=== PATIENT | female | born 1955 | race Caucasian/White ===

== ENCOUNTER 2019-07-26 11:23 | Inpatient (IN) ==
--- NOTE | 2019-07-26 12:43 | Diag Imaging Result Doc PS360 ---
EXAM: CHEST-1 VIEW HISTORY: not eating TECHNIQUE: Single view COMPARISON: None. FINDINGS: The lungs are hyperexpanded. The heart is not enlarged. The vessels are small. Minimal increased markings in the left base behind the heart. No effusion identified. IMPRESSION: Emphysema. Likely left basilar atelectasis Electronically signed by Leonard Gresham 07/26/2019 12:40 PM
[2019-07-26 12:47] LABS: URINE SOURCE CLEAN CATCH
[2019-07-26 12:51] LABS: BILIRUBIN URINE NEGATIVE (NEGATIVE); BLOOD URINE TRACE (NEGATIVE); COLOR ORANGE; GLUCOSE URINE NEGATIVE (NEGATIVE); KETONE URINE NEGATIVE (NEGATIVE); LEUKOCYTES URINE SMALL (NEGATIVE); NITRITE URINE NEGATIVE (NEGATIVE); PH URINE 8.5; PROTEIN URINE TRACE mg/dL (NEGATIVE); SP GRAVITY URINE 1.007; TURBIDITY URINE HAZY (CLEAR); UR EPITHELIAL CELLS <10 /HPF (<10); URINE BACTERIA 4+ /HPF; URINE RBC <10 /HPF (<10); URINE WBC <10 /HPF (<10); UROBILINOGEN URINE 4 mg/dL (NORMAL)
[2019-07-26 12:52] LABS: BASO# 0.02 X1000 (0.0-0.2); BASO% 0.5 % (0.0-0.8); EOS% 2.5 % (0.0-10.0); HEMATOCRIT 26.1 % (37.0-47.0); HEMOGLOBIN 9.2 g/dL (12.0-16.0); LYMPH# 0.88 X1000 (1.2-3.4); LYMPH% 22.4 % (20.5-51.1); MCH 32.2 PG (27-31); MCHC 35.2 g/dL (33-37); MCV 91.3 FL (81-99); MONO# 0.57 X1000 (0.11-0.59); MONO% 14.5 % (1.7-9.3); MPV 9.7 FL (7.4-10.4); NEUT# 2.36 X1000 (1.4-6.5); NEUT% 60.1 % (42.2-75.2); PLT 296 X1000 (130-400); RBC 2.86 XMIL (4.2-5.4); RDW 14.5 % (11.5-14.5); WBC 3.93 X1000 (4.8-10.8)
[2019-07-26 13:28] LABS: UR AMPHETAMINES QUAL NONE DETECTED (NONE DETECT); UR BARBITUATES QUAL NONE DETECTED (NONE DETECT); UR BENZODIAZEPIN QUAL NONE DETECTED (NONE DETECT); UR CANNABINOIDS QUAL NONE DETECTED (NONE DETECT); UR COCAINE QUAL NONE DETECTED (NONE DETECT); UR METHADONE QUAL NONE DETECTED (NONE DETECT); UR OPIATES QUAL NONE DETECTED (NONE DETECT); UR OXYCODONE QUAL NONE DETECTED (NONE DETECT); UR PCP QUAL NONE DETECTED (NONE DETECT)
[2019-07-26 13:56] LABS: AGAP 15; ALB/GLOB RATIO 0.9; ALBUMIN 2.4 g/dL (3.5-5.0); ALKALINE PHOSPHATASE 162 U/L (32-104); BUN 3 mg/dL (8-22); CHLORIDE 61 mmol/L (98-107); COSMO 224; CREATININE 0.4 mg/dL (0.5-0.9); ESTIMATED GFR > 60; GLUCOSE 98 mg/dL (70-104); GOT 71 U/L (10-30); GPT 19 U/L (10-36); TCO2 36 mmol/L (25-35); TOTAL BILIRUBIN 1.97 mg/dL (0.20-1.00); TOTAL PROTEIN 5.1 g/dL (6.3-8.3)
[2019-07-26 13:57] LABS: POTASSIUM 2.3 mmol/L (3.5-5.1); SODIUM 112 mmol/L (136-145)
[2019-07-26 13:58] LABS: CALCIUM 6.1 mg/dL (8.8-10.2)
[2019-07-26] MEDS ORDERED: CALCIUM CHLORIDE SYRINGE IV ONE (14:35)
[2019-07-26] MEDS ORDERED: POTASSIUM CHLORIDE 20% LIQUID PO ONE ×2 (14:35→23:00)
[2019-07-26] MEDS ORDERED: POTASSIUM CHLORIDE 40 MEQ/SWI 40 MEQ/100 ML IVPB IV ONE (14:35)
[2019-07-26] MEDS ORDERED: NS 500 ML IV ONE (15:25)
--- NOTE | 2019-07-26 15:31 | PROVIDER DOCUMENTATION ---
This chart was entered by Amilcar Wills Scribe, acting as scribe for Dominic Cook MD. HPI-General Adult - General Chief Complaint: General Adult Stated Complaint: decreased appetite Time Seen by Provider: 07/26/19 11:57 Source: patient, family Allergies/Adverse Reactions: Patient Allergies Allergy/AdvReac Type Severity Reaction Status Date / Time No Known Allergies Allergy Verified 07/26/19 11:57 Home Medications: Home Medication List Medication Instructions Recorded Confirmed Last Taken Type NK [No Home Medications] 07/26/19 07/26/19 Unknown History - History of Present Illness -Gen Adult Nature of Presenting Problems: 63 yof presents to the ed w/ c/o decrease in appetite. family states over past couple weeks " pt could walk w/ assistance to bathroom but now barley gets out of bed." pt states couple months ago could walk w/ no assistance. family states " family states pts weak, decreased daily activates. pt refused to eat/drink or seeks treatment." pt states " cant eat makes me sick." family states " pt will take 2/3 bites then vomit back up." pt states no pcp. Location of Pain/Injury: reports: none Pain Radiation: reports: no radiation Quality of Pain: reports: none Severity: reports: mild Onset/Duration: reports: 1 week ago (family states decrease over last couple weeks) Timing: reports: still present Context/Activities at Onset: reports: none Modifying Factors: improves with: nothing Associated Symptoms: reports: loss of appetite, nausea, vomiting, weakness. denies: back/neck pain, chest pain, diarrhea, fever/chills, shortness of breath Similar Symptoms Previously?: No Recently seen or treated by another doctor?: No Review of Systems - Adult - REVIEW OF SYSTEMS - ADULT Constitutional: denies: chills, fever Eyes: reports: no symptoms reported Ears, Nose, Mouth & Throat: denies: ear pain, sinus problem Cardiovascular: denies: chest pain, palpitations Respiratory: reports: no symptoms reported Gastrointestinal: reports: see HPI, nausea, poor appetite, vomiting. denies: abdominal pain, diarrhea Genitourinary: reports: no symptoms reported Musculoskeletal: reports: no symptoms reported Integumentary: reports: no symptoms reported Neurological: reports: no symptoms reported Psychiatric: reports: no symptoms reported Endocrine: reports: no symptoms reported Hematologic/Lymphatic: reports: no symptoms reported Allergic/Immunologic: reports: no symptoms reported All Other Systems: Reviewed and Negative Past History - Adult - PAST MEDICAL HISTORY-ADULT Review of Records: reports: Old Records Reviewed, Nursing Assessment Review, Medications Reviewed, Social history reviewed & non-contributory. Major Childhood Illnesses: reports: denies history Cardiovascular: reports: denies history Respiratory: reports: denies history Gastrointestinal: reports: denies history Obstetrical/Gynecological: reports: denies history Genitourinary: reports: denies history Musculoskeletal: reports: denies history Neurological: reports: denies history Psychiatric: reports: denies history Endocrine/Immune: reports: denies history Other Conditions: reports: denies history - PRIOR SURGERIES/PROCEDURES Surgical/Procedure History: reports: reviewed, not pertinent - IMMUNIZATION STATUS Childhood Immunizations: See Nurse Assessment Flu Vaccine: See Nurse Assessment - FAMILY HISTORY Family History: reviewed, not pertinent - SOCIAL HISTORY Smoking: quit less than 1 year, cigarettes Substance Use: denies Physical Exam-General - PHYSICAL EXAM-ADULT Initial Vital Signs Reviewed: Yes - CONSTITUTIONAL General Appearance: appears well, alert, no apparent distress - EYES Eyes: pink conjunctivae - RESPIRATORY Respiratory: chest non-tender, lungs clear, normal breath sounds - CARDIOVASCULAR Cardiovascular: normal peripheral pulses, regular rate, rhythm - CHEST (BREASTS) Chest/Breast: deferred - GASTROINTESTINAL (ABDOMEN) Abdominal Exam: normal bowel sounds, non tender, soft - GENITOURINARY Female Genitalia/Pelvic Exam: deferred Rectal Exam: deferred Hemoccult Exam: deferred - MUSCULOSKELETAL Extremity: normal inspection (no edema) - PSYCHIATRIC Psych/Mental Status: normal mood/affect, normal thought content, normal thought process, oriented x 3 Progress - PLAN OF CARE/RESULTS Progress/Plan/Lab Results: Vital Signs - 8 hr 07/26/19 11:52 Temperature 97.8 F Pulse Rate 91 H Respiratory Rate 16 Blood Pressure 119/83 O2 Sat by Pulse Oximetry 95 Result Diagrams: 07/26/19 12:40 07/26/19 12:40 - EKG 1 Time of EKG reading by physician:: 14:27 EKG Read and Signed by:: Dominic Cook EKG Interpretation (*Must complete 3 of following elements*): Abnormal Rate: 88 Rhythm: NSR [place]: normal QRS: normal [place] Interval: normal ST Wave: normal Comments: prolonged QT - XRAY 1 XRAY Study: Chest Impression: See EMR Report ( EXAM: CHEST-1 VIEW HISTORY: not eating TECHNIQUE: Single view COMPARISON: None. FINDINGS: The lungs are hyperexpanded. The heart is not enlarged. The vessels are small. Minimal increased markings in the left base behind the heart. No effusion identified. IMPRESSION: Emphysema. Likely left basilar atelectasis Electronically signed by Leonard Gresham 07/26/2019 12:40 PM 07/26/19 1240 Interpreting Physician: Leonard Gresham MD Dictated Date/Time: 07/26/19 1240 cc: Dominic Cook MD; None,PCP) - CONSULTS/PCP/HOSPITALIST Notification #1 *Consult/PCP/Hospitalist*: [place] Time Discussed: 15:30 Consult Disposition: Will see in ED, Admit Departure - Departure Date of Disposition Decision: 07/26/19 Time of Disposition Decision: 15:00 DIAGNOSIS: Hyponatremia, Hypokalemia, Hypocalcemia Disposition: ADMITTED INPATIENT 09 Certified Medical Emergency: Emergent Condition: Fair Referrals and Follow-Ups: None,PCP [Primary Care Provider] - - Critical Care Note This patient required my direct & personal management of CC.: No Attestation - Physician/ JACOB Attestation Patient care was provided by Advanced Practice Provider:: No The physician spent face to face time with patient:: Yes Advanced Practice Provider documentation review:: Supervising physician onsite and consulted in the evaluation and care of this patient. The physician did have a face to face encounter with the patient. This chart was documented by the indicated scribe, (Amilcar Wills Scribe) and accurately reflects the services I performed and decisions made by me, Dominic Cook MD, as attested by the provider's signature.
[2019-07-26] MEDS ORDERED: ZOFRAN IV ONE (15:33)
[2019-07-26] MEDS ORDERED: ZOFRAN ONE (15:41)
[2019-07-26] MEDS ORDERED: NS + KCL 20 MEQ 1,000 ML IV ONE ×2 (16:11→23:16)
[2019-07-26] MEDS ORDERED: ZOFRAN IV PRN (16:11)
[2019-07-26] MEDS ORDERED: MAGNESIUM SULFATE 4 GM/S.W.I. 4 GM/100 ML IVPB IV ONE (16:44)
--- NOTE | 2019-07-26 16:46 | EKG Report ---
Test Performed on : 07/26/2019 2:27:43 PM Test Reason : low potassium Blood Pressure : / mmHG Vent. Rate : 088 BPM Atrial Rate : 088 BPM P-R Int : 128 ms QRS Dur : 086 ms QT Int : 440 ms P-R-T Axes : 078 041 046 degrees QTc Int : 532 ms Normal sinus rhythm. Prolonged QT Abnormal ECG No previous ECGs available Unconfirmed Result
[2019-07-26] MEDS: PEPCID IV SCH (17:17)
--- NOTE | 2019-07-26 18:52 | HISTORY AND PHYSICAL ---
PRIMARY CARE PROVIDER: None. CHIEF COMPLAINT: Failure to thrive, nausea, vomiting. HISTORY OF PRESENT ILLNESS: Ms. Mcneil is a 63-year-old female who claims no past medical history. She is very hard of hearing. at bedside reports 2 years ago they lost a son to a home invasion. She has been depressed since that time. However, he reported a month before Thanksgiving she stated she was cancelling all holidays and felt like she was withdrawing more, on she had been a 3 pack per day smoker for many years she quit cold turkey. She would drink 2 alcoholic beverage per day. She quit cold turkey. Her appetite had also decreased, she was weak but was able to walk without any assistance, now over the last 2 weeks every time she tries to eat or drink she will get nauseated and will throw up and now she is unable to even get herself up to go to the bathroom or participate any activities of daily living. She has had absolutely refused to seek any treatment up until this point called EMS today and the patient agreed to come in. She was found to have multiple electrolyte derangements with a sodium of 112, potassium of 2.3, a chloride of 61, calcium of 6.1, dehydrated with a BUN of 3, creatinine 0.4, transaminitis T bilirubin of 1.97, AST of 71, alkaline phosphatase 162, protein calorie malnutrition with a total protein of 5.1 and albumin of 2.4. We are going to check a stat mag on blood that is in lab. She is currently initiated on normal saline, potassium and calcium, we will place her in the ICU place on some normal saline with potassium and watch her serial sodium q.4 hours and adjust her saline accordingly and continue with further management and treatment. PAST MEDICAL HISTORY: Denies. PAST SURGICAL HISTORY: Denies . 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 She has 3 sons one of which is from a home invasion 2 years ago. She was a 3 pack per day smoker until this year as well as a 2 alcoholic beverage drinker until of this year she quit both cold turkey. She is supportive at bedside, does report that she does not like to take medication or go to doctors did not want to seek treatment for any depression during these 2 years. REVIEW OF SYSTEMS: Twelve-point review of systems patient denies any headache, fever, chills, cough. She has had some nausea and vomiting with eating, diarrhea. No abdominal pain, no chest pain, no shortness of breath. No bright red or dark tarry stools. No dysuria, no frequency. Per she has had a foul smelling odor to her urine. PHYSICAL EXAM: VITAL SIGNS: Temperature was 97.8 degrees, heart rate 88, respiration 22, blood pressure 129/90, O2 is 99% on 2 L. GENERAL: Ms. Mcneil is a ill appearing 63-year-old female lying on the stretcher in no acute distress hard of hearing. HEENT: Atraumatic, normocephalic, JOY. NECK: Supple, trachea midline. CARDIOVASCULAR: S1, S2 appreciated. No murmurs, gallops, rubs noted. RESPIRATORY: Lung sounds clear bilaterally. ABDOMEN: Soft, nontender, nondistended. Positive bowel sounds 4 quads. Lower extremities trace edema. NEUROLOGIC: She is somewhat sleepy however she does wake up. She does answer questions appropriately. She is hard of hearing. DIAGNOSTIC DATA: Chest x-ray emphysema, likely left basilar atelectasis. LABORATORY DATA: White count 3, hemoglobin and hematocrit 9 and 26, platelet count is 296,000. Sodium 112, potassium 2.3, chloride 61, BUN 3, creatinine 0.4, blood glucose is 98, calcium 6.1, T bilirubin 1.97, AST 71, ALT 19, alkaline phosphatase 162, total protein 5.1, albumin 2.4. Urinalysis shows 4+ bacteria, small leukocytes, negative for nitrites, tox screen is negative. ASSESSMENT AND PLAN: 1. Failure to thrive. Patient not able to tolerate any p.o. intake without any nausea or vomiting. She has been too weak to perform activities of daily living or help herself to the bathroom. Will get physical therapy on board with the patient when the patient's electrolyte abnormalities have been replenished and the patient's dehydration has been addressed. 2. Multiple electrolyte derangements with hyponatremia, hypokalemia, hypochloridemia and hypocalcemia pending her magnesium and we are replenishing all her electrolytes, will slowly raise her sodium, will do serial potassium draws every 4 hours as to not raise her sodium too high to quick and replenish all electrolytes as needed. 3. Dehydration. Will continue with IV fluids. 4. Transaminitis. Will continue with IV hydration. Recheck her liver functions in the a.m. 5. Protein calorie malnutrition secondary to #1. Will bring dietary on board, put her on a regular diet, will provide Zofran, Ensures t.i.d., assistance with all meals. 6. Bacteruria, patient does have 4+ bacteria however she does not claim any dysuria. We will await her urine culture. 7. Depression. I will talk to Dr. Vergara to see an appropriate medication to start and after her electrolyte derangements are replenished and she has worked with physical therapy and she can gain her strength back she may need a consult for Isaac Nova or maybe a consult with Dr. Starr in-house on Saturday for assistance. 8. Tobacco use and abuse. Patient was a 3 pack per day smoker up until when she quit cold turkey was a smoker for many years. 9. Alcohol use too much drinks per day up until . 10. Further recommendation to follow physician evaluation, laboratory and diagnostic data. Dictated by ARCADIO Rdz for Gerald Vergara MD cc: Gerald Vergara MD MTDMari
--- NOTE | 2019-07-26 19:02 | HISTORY AND PHYSICAL ---
ADDENDUM: Ms. Mcneil is admitted today after the family brought her because of remarkable generalized weakness, not wanting to eat and poor appetite. Upon presentation, she was evaluated and on laboratory data was found to be severely hyponatremic, hypokalemic, low calcium as well, albumin of 2.4. She is being admitted for severe electrolyte abnormality and no eating. PHYSICAL EXAM: For most part is unremarkable except for mucous membrane which is dry. She looks depressed. ASSESSMENT: 1. Generalized weakness and deconditioning. Presumably from severe electrolyte abnormalities. 2. Severe electrolyte abnormality including hyponatremia, hypokalemia. 3. Protein-calorie malnutrition. 4. Possible severe depression since patient lost her son and her mom. I have started her on Lexapro. We will also get a TSH level and other vitamin and mineral levels. Ms. Mcneil will eventually be seen by [facility] once she is medically stable. We will also get physical therapy to start working with her as we continue to address her electrolyte imbalances. Please refer to the details of the history and physical which has been dictated by the TABLE GAMES FLOOR SUPERVISOR in the chart. I have discussed the plan with her. cc: Gerald Vergara MD
[2019-07-26] MEDS: LEXAPRO PO SCH (21:09)
[2019-07-26 22:46] LABS: AGAP 11; ALB/GLOB RATIO 0.8; ALBUMIN 2.3 g/dL (3.5-5.0); ALKALINE PHOSPHATASE 172 U/L (32-104); BUN 3 mg/dL (8-22); CALCIUM 7.3 mg/dL (8.8-10.2); CHLORIDE 67 mmol/L (98-107); COSMO 230; CREATININE 0.4 mg/dL (0.5-0.9); ESTIMATED GFR > 60; GLUCOSE 108 mg/dL (70-104); GOT 60 U/L (10-30); GPT 18 U/L (10-36); TCO2 37 mmol/L (25-35); TOTAL BILIRUBIN 2.23 mg/dL (0.20-1.00); TOTAL PROTEIN 5.2 g/dL (6.3-8.3)
[2019-07-26 22:48] LABS: SODIUM 115 mmol/L (136-145)
[2019-07-26] MEDS: POTASSIUM CHLORIDE 20 MEQ/SWI 20 MEQ/100 ML IVPB IV SCH (23:35)
[2019-07-27] MEDS: POTASSIUM CHLORIDE 20 MEQ/SWI 20 MEQ/100 ML IVPB IV SCH (01:25)
[2019-07-27] MEDS: PEPCID IV SCH ×2 (04:49→15:37)
[2019-07-27 05:45] LABS: BASO# 0.02 X1000 (0.0-0.2); BASO% 0.4 % (0.0-0.8); EOS# 0.13 X1000 (0.0-0.7); EOS% 2.4 % (0.0-10.0); HEMATOCRIT 24.8 % (37.0-47.0); HEMOGLOBIN 8.7 g/dL (12.0-16.0); LYMPH# 1.03 X1000 (1.2-3.4); LYMPH% 19.2 % (20.5-51.1); MCH 32.6 PG (27-31); MCHC 35.1 g/dL (33-37); MCV 92.9 FL (81-99); MONO# 0.67 X1000 (0.11-0.59); MONO% 12.5 % (1.7-9.3); MPV 10.4 FL (7.4-10.4); NEUT# 3.52 X1000 (1.4-6.5); NEUT% 65.5 % (42.2-75.2); PLT 328 X1000 (130-400); RBC 2.67 XMIL (4.2-5.4); RDW 14.8 % (11.5-14.5); WBC 5.37 X1000 (4.8-10.8)
[2019-07-27] MEDS ORDERED: NS + KCL 20 MEQ 1,000 ML IV ONE (06:02)
[2019-07-27 06:11] LABS: TOTAL IRON 109 ug/dL (49-151)
[2019-07-27 06:13] LABS: AGAP 9; ALB/GLOB RATIO 0.8; ALBUMIN 2.2 g/dL (3.5-5.0); ALKALINE PHOSPHATASE 158 U/L (32-104); BUN 3 mg/dL (8-22); CALCIUM 7.1 mg/dL (8.8-10.2); CHLORIDE 73 mmol/L (98-107); COSMO 233; CREATININE 0.4 mg/dL (0.5-0.9); ESTIMATED GFR > 60; GLUCOSE 96 mg/dL (70-104); GOT 55 U/L (10-30); GPT 16 U/L (10-36); POTASSIUM 3.1 mmol/L (3.5-5.1); TCO2 35 mmol/L (25-35); TOTAL BILIRUBIN 1.95 mg/dL (0.20-1.00); TOTAL PROTEIN 4.8 g/dL (6.3-8.3)
[2019-07-27 06:14] LABS: SODIUM 118 mmol/L (136-145)
[2019-07-27 06:22] LABS: UNBOUND IRON 11 ug/dL (112-346)
[2019-07-27] MEDS ORDERED: POTASSIUM CHLORIDE 10% LIQUID PO ONE (06:22)
[2019-07-27 06:44] LABS: FREE T4 1.43 ng/dL (0.93-1.70); IRON SATURATION 91 %; TIBC 120 ug/dL; TSH 1.02 uIUmL (0.27-4.20)
--- NOTE | 2019-07-27 07:10 | EKG Report ---
Test Performed on : 07/27/2019 06:54:00 AM Test Reason : low potassium Blood Pressure : / mmHG Vent. Rate : 103 BPM Atrial Rate : 103 BPM P-R Int : 124 ms QRS Dur : 084 ms QT Int : 394 ms P-R-T Axes : 054 051 057 degrees QTc Int : 516 ms Sinus tachycardia. Otherwise normal ECG When compared with ECG of 26-JUL-2019 14:27, (Unconfirmed) No significant change was found Confirmed by Jon ONEIL, Yoandy Gotti ([id number]) on 07/28/2019 6:14:29 PM
[2019-07-27 08:57] LABS: AGAP 10; BUN 3 mg/dL (8-22); CALCIUM 7.3 mg/dL (8.8-10.2); CHLORIDE 75 mmol/L (98-107); COSMO 236; CREATININE 0.5 mg/dL (0.5-0.9); ESTIMATED GFR > 60; GLUCOSE 120 mg/dL (70-104); POTASSIUM 3.4 mmol/L (3.5-5.1); SODIUM 117 mmol/L (136-145); TCO2 33 mmol/L (25-35)
[2019-07-27] MEDS ORDERED: ROCEPHIN 1 GM in NS 50 ML IV ONE (11:51)
--- NOTE | 2019-07-27 15:04 | PROGRESS NOTE ---
DATE: 07/27/2019 SUBJECTIVE: This morning, Ms. Mcneil refers to be doing a little better. She looks more delighted. She denies any new complaints. She thinks her mouth dryness is getting better. She is still pending evaluation by Physical Therapy. OBJECTIVE: Vital Signs: Blood pressure is 124/84, pulse of 95, respirations 16, temperature 98.1 degrees, the patient is saturating 97% on room air. General: Ms. Mcneil is a 63-year-old, elderly, female. She is in bed. She is not in any distress. HEENT: Mucosa is pink, slightly dry. Anicteric. Acyanotic. Neck: Supple. No JVD. No carotid bruit. Cardiovascular: Regular rate and rhythm. There are no murmurs, no rubs, no gallops. GI: Abdomen is soft, nontender. Bowel sounds present. There is no hepatosplenomegaly. Extremities: No pedal edema. Distal pulses are present. The left feels stronger than the right. HOOD MAKER: The patient is awake, alert, and follows commands. LABORATORY DATA: WBC is 5.37, hemoglobin is 8.7, platelet count of 328,000. Chemistry shows sodium is 117 from 112 yesterday, potassium is 3.4, chloride is 75, bicarb is 33. Magnesium is okay. The patient's I's and O's show urine output was documented to be only 300. The patient is currently positive balance of 1796. So far, urine culture is showing gram-negative umer. ASSESSMENT: 1. Hypovolemic hyponatremia. Sodium seems to be gradually getting better. Will continue with the intravenous fluids. We are pending the repeat lab work for this afternoon to make changes to the type of fluid and the rate. 2. Severe electrolyte abnormality, including hypokalemia and hyponatremia. Will continue replacement. 3. Protein calorie malnutrition. Dietitian has been consulted. The patient is currently on nutritional supplements. 4. Severe depression. The patient has been started on Lexapro, and we hope to consult [facility] when all her electrolyte abnormalities are corrected and she is stable for discharge from a medical standpoint. 5. Urinary tract infection with culture growing gram-negative umer. The patient has been started on ceftriaxone. We are pending the identity and sensitivity, and then go from there. In general, Ms. Mcneil has been in the hospital for 1 day. Initially presented with the family, who were concerned that she is not drinking and not eating for a long time now. Upon presentation, she was found to be remarkably dehydrated, severe electrolyte abnormality. She is admitted to the intensive care unit under telemonitoring. Her sodium has progressively gotten better. We plan to target a maximum of 6 to 8 millimole per liter of sodium increase on every 24- hour basis. Will make changes to her fluids once we have the results of this afternoon's labs. She remains critically sick. Will keep her in the unite another day. cc: Gerald Vergara MD Critical time 45 minutes [facility]
[2019-07-27] MEDS: SODIUM CHLORIDE 0.9% INJ SCH (15:37)
[2019-07-27] MEDS: MEGACE LIQUID PO SCH ×2 (15:37→20:00)
[2019-07-27 16:41] LABS: AGAP 10; BUN 3 mg/dL (8-22); CALCIUM 7.3 mg/dL (8.8-10.2); CHLORIDE 79 mmol/L (98-107); COSMO 237; CREATININE 0.4 mg/dL (0.5-0.9); ESTIMATED GFR > 60; GLUCOSE 105 mg/dL (70-104); POTASSIUM 3.5 mmol/L (3.5-5.1); SODIUM 119 mmol/L (136-145); TCO2 30 mmol/L (25-35)
[2019-07-27] MEDS: NS + KCL 20 MEQ 1,000 ML IV SCH (18:36)
[2019-07-27] MEDS: LEXAPRO PO SCH (20:00)
[2019-07-27 20:57] LABS: AGAP 11; BUN 3 mg/dL (8-22); CALCIUM 7.3 mg/dL (8.8-10.2); CHLORIDE 79 mmol/L (98-107); COSMO 232; CREATININE 0.4 mg/dL (0.5-0.9); ESTIMATED GFR > 60; GLUCOSE 105 mg/dL (70-104); POTASSIUM 3.5 mmol/L (3.5-5.1); SODIUM 117 mmol/L (136-145); TCO2 26 mmol/L (25-35)
[2019-07-28 01:51] LABS: AGAP 11; BUN 4 mg/dL (8-22); CALCIUM 7.3 mg/dL (8.8-10.2); CHLORIDE 81 mmol/L (98-107); COSMO 233; CREATININE 0.4 mg/dL (0.5-0.9); ESTIMATED GFR > 60; GLUCOSE 98 mg/dL (70-104); POTASSIUM 3.5 mmol/L (3.5-5.1); SODIUM 118 mmol/L (136-145); TCO2 25 mmol/L (25-35)
[2019-07-28 03:44] LABS: HEMATOCRIT 20.8 % (37.0-47.0); HEMOGLOBIN 7.1 g/dL (12.0-16.0); MCH 32.1 PG (27-31); MCHC 34.1 g/dL (33-37); MCV 94.1 FL (81-99); MPV 9.6 FL (7.4-10.4); RBC 2.21 XMIL (4.2-5.4); RDW 15.2 % (11.5-14.5); WBC 5.1 X1000 (4.8-10.8)
[2019-07-28 04:55] LABS: AGAP 7; ALBUMIN 2.2 g/dL (3.5-5.0); BUN 4 mg/dL (8-22); CALCIUM 7.1 mg/dL (8.8-10.2); CHLORIDE 83 mmol/L (98-107); COSMO 233; CREATININE 0.4 mg/dL (0.5-0.9); ESTIMATED GFR > 60; GLUCOSE 93 mg/dL (70-104); PHOSPHORUS 1.6 mg/dL (2.7-4.5); POTASSIUM 3.4 mmol/L (3.5-5.1); TCO2 27 mmol/L (25-35)
[2019-07-28 04:57] LABS: SODIUM 117 mmol/L (136-145)
[2019-07-28 06:33] LABS: AGAP 9; BUN 4 mg/dL (8-22); CALCIUM 7.3 mg/dL (8.8-10.2); CHLORIDE 84 mmol/L (98-107); COSMO 235; CREATININE 0.4 mg/dL (0.5-0.9); ESTIMATED GFR > 60; GLUCOSE 93 mg/dL (70-104); POTASSIUM 3.5 mmol/L (3.5-5.1); TCO2 25 mmol/L (25-35)
[2019-07-28] MEDS: SODIUM CHLORIDE 0.9% INJ SCH (06:36)
[2019-07-28] MEDS: PEPCID IV SCH (06:36)
[2019-07-28] MEDS: NS + KCL 20 MEQ 1,000 ML IV SCH (06:39)
[2019-07-28] MEDS ORDERED: PEPCID ONE (06:40)
[2019-07-28 08:00] LABS: SODIUM 118 mmol/L (136-145)
[2019-07-28] MEDS ORDERED: SAMSCA PO ONE (08:47)
[2019-07-28] MEDS: ROCEPHIN 1 GM in NS 50 ML IV SCH (09:51)
[2019-07-28] MEDS: LIPOSYN 20% 250 ML IV SCH (09:51)
[2019-07-28] MEDS: MEGACE LIQUID PO SCH ×3 (09:51→23:46)
[2019-07-28] MEDS: CLINIMIX E 4.25%-5% SOLUTION 1,000 ML IV SCH ×2 (09:52→18:28)
[2019-07-28] MEDS ORDERED: SODIUM PHOSPHATE 35 MMOL in NS 250 ML IV ONE (10:00)
--- NOTE | 2019-07-28 10:22 | PROGRESS NOTE ---
DATE: 07/28/2019 SUBJECTIVE: The patient reports feeling fine. Denies any headache, any nausea or vomiting. She is not eating completely fine. No other issues noted as per nursing staff overnight. OBJECTIVE: Vital Signs: Temperature 98.6 degrees, heart rate 91, respiratory rate 14, blood pressure 110/73. O2 saturation 99% on room air. General Examination: This is a chronically ill- appearing and frail 63-year-old female lying in bed, in no acute distress. Cardiovascular: S1, S2 heard. No murmurs, gallops, or rubs. Regular rate and rhythm. Respiratory: Clear bilaterally to auscultation. No work of breathing or using accessory muscles. Abdomen: Soft, nontender to palpation. Bowel sounds present. No organomegaly. Extremities: No clubbing, cyanosis, or edema. Peripheral pulses present in both legs. Neurological: The patient is alert, oriented x3. Moves 4 extremities. LABORATORY DATA: WBC 5.01, hemoglobin 10.1, hematocrit 28.8, platelets 289,000. BMP that reveals sodium 118 with normal creatinine. Phosphorus 1.6 today. ASSESSMENT/PLAN: 1. Hypovolemic hyponatremia. Unfortunately since admission the sodium has been steadily in the range of 117 to 118. I think at this point, considering that this patient has been on SSRI and there could be SIADH component will provide 1 dose of Samsca, will stop IV fluids. We will check a BMP tomorrow. 2. Electrolyte imbalance. Hypokalemia is resolved. Hypophosphatemia, we are going to finish with 35 millimoles of sodium phosphate. We will check labs tomorrow. 3. Protein-calorie malnutrition. Patient has been followed by a dietitian. She is receiving Megestrol to stimulate appetite. I think at this point we will star Clinimix on this patient and lipids as well. 4. Depression. We will continue Lexapro. 5. Urinary tract infection secondary to Escherichia coli. We found an Escherichia -coli Infection that is pansensitive. We will continue with ceftriaxone and upon discharge we will switch to Levaquin p.o. DISPOSITION: We will transfer this patient to [facility] to from Intensive Care Unit today to regular floor. We will consult physical therapy and occupational therapy. cc: Zackery Mandujano MD
[2019-07-28 17:39] LABS: AGAP 10; BUN 4 mg/dL (8-22); CALCIUM 7.8 mg/dL (8.8-10.2); CHLORIDE 90 mmol/L (98-107); COSMO 247; CREATININE 0.4 mg/dL (0.5-0.9); ESTIMATED GFR > 60; GLUCOSE 112 mg/dL (70-104); POTASSIUM 3.2 mmol/L (3.5-5.1); SODIUM 124 mmol/L (136-145); TCO2 24 mmol/L (25-35)
--- NOTE | 2019-07-28 18:04 | Diag Imaging Result Doc PS360 ---
EXAM: CT HEAD W/WO CONTRAST 07/28/2019 HISTORY: increased confusion TECHNIQUE: This exam was performed using automated exposure control, adjustment of mA or kV according to patient size, and/or use of iterative reconstruction technique. COMMENT: There is no evidence of mass effect, bleed, or abnormal extra-axial fluid collection. There is no evidence of abnormal contrast enhancement. There is mucosal thickening in the right sphenoid sinus otherwise the visualized paranasal sinuses are clear. IMPRESSION: No evidence of acute intracranial disease. Right sphenoid sinusitis. Electronically signed by Mitesh Méndez 07/28/2019 6:01 PM
[2019-07-28] MEDS: LEXAPRO PO SCH ×2 (19:51→23:46)
[2019-07-28] MEDS: LOPRESSOR IV SCH (19:51)
[2019-07-29] MEDS: LOPRESSOR IV SCH ×5 (00:49→20:47)
[2019-07-29] MEDS: CLINIMIX E 4.25%-5% SOLUTION 1,000 ML IV SCH ×2 (03:45→13:22)
[2019-07-29 08:29] LABS: HEMATOCRIT 22.4 % (37.0-47.0); HEMOGLOBIN 7.5 g/dL (12.0-16.0); MCH 32.6 PG (27-31); MCHC 33.5 g/dL (33-37); MCV 97.4 FL (81-99); MPV 9.8 FL (7.4-10.4); RBC 2.3 XMIL (4.2-5.4); WBC 5.08 X1000 (4.8-10.8)
[2019-07-29 08:32] LABS: INR 1.13; PROTIME 14.7 Seconds (11.0-16.0)
[2019-07-29] MEDS: MEGACE LIQUID PO SCH ×2 (08:42→20:46)
[2019-07-29] MEDS: LIPOSYN 20% 250 ML IV SCH (08:43)
[2019-07-29] MEDS: ROCEPHIN 1 GM in NS 50 ML IV SCH (08:43)
[2019-07-29 09:06] LABS: AGAP 11; ALBUMIN 2.4 g/dL (3.5-5.0); BUN 6 mg/dL (8-22); CHLORIDE 94 mmol/L (98-107); COSMO 258; CREATININE 0.4 mg/dL (0.5-0.9); ESTIMATED GFR > 60; GLUCOSE 116 mg/dL (70-104); PHOSPHORUS 4.3 mg/dL (2.7-4.5); POTASSIUM 3.8 mmol/L (3.5-5.1); SODIUM 129 mmol/L (136-145); TCO2 24 mmol/L (25-35)
--- NOTE | 2019-07-29 09:24 | PROGRESS NOTE ---
DATE: 07/29/2019 SUBJECTIVE: The patient yesterday became a little more confused. CT of the head did not show any acute abnormality. Sodium was a little bit elevated in comparing with labs from yesterday morning. On my examination today, she is definitely more awake and alert. Sometimes she has periods of confusion. OBJECTIVE: Vital Signs: Temperature 98.5, heart rate 105, respiratory rate 16, blood pressure 137/79, O2 saturation 99% on room air. General Examination: Chronically ill-appearing and frail 63-year-old female lying in bed in no acute distress. Cardiovascular: S1, S2 heard. No murmurs, gallops, or rubs. Regular rate and rhythm. Respiratory: Clear bilaterally to auscultation. No work of breathing or use of accessory muscles. Abdomen: Tender to palpation. Bowel sounds present. No organomegaly. Extremities: No clubbing, cyanosis, or edema. Peripheral pulses present in both legs. Neurological: Patient is alert and oriented x3. Moves 4 extremities. LABORATORY DATA: Pending at the time of my dictation. ASSESSMENT/PLAN: 1. Hypovolemic hyponatremia. At this point, we do not have any labs. Yesterday, because of confusion, we checked a BMP with sodium 124 with normal creatinine, low calcium, low potassium and low phosphorus. At this point, we are awaiting labs to see what we have to do. 2. Electrolyte imbalance. Again, phosphorus has been replenished but still no labs. We will wait for those and we will treat this patient accordingly. 3. Protein-calorie malnutrition. Patient has been started on Clinimix and lipids and she is on megestrol right now. 4. Depression. We will continue with Lexapro. 5. Urinary tract infection secondary to Escherichia coli. We will continue with ceftriaxone. We will continue this in the hospital. I will switch to p.o. Levaquin whenever the patient is ready. 6. Disposition: At this point, we will keep this patient in the intensive care unit because she has this change in mental status. We will see the results of a renal profile and will treat this patient accordingly. cc: Zackery Mandujano MD
[2019-07-29] MEDS ORDERED: NS 250 ML ONE (12:40)
[2019-07-29] MEDS ORDERED: SAMSCA PO ONE ×2 (12:46→13:15)
[2019-07-29 16:42] LABS: URINE SOURCE CATH
[2019-07-29 16:51] LABS: BILIRUBIN URINE NEGATIVE (NEGATIVE); BLOOD URINE NEGATIVE (NEGATIVE); COLOR YELLOW; GLUCOSE URINE NEGATIVE (NEGATIVE); KETONE URINE NEGATIVE (NEGATIVE); LEUKOCYTES URINE NEGATIVE (NEGATIVE); NITRITE URINE NEGATIVE (NEGATIVE); PROTEIN URINE NEGATIVE (NEGATIVE); SP GRAVITY URINE 1.011; TURBIDITY URINE CLEAR (CLEAR); UROBILINOGEN URINE NORMAL (NORMAL)
[2019-07-29 16:55] LABS: UR EPITHELIAL CELLS <10 /HPF (<10); URINE BACTERIA NEGATIVE /HPF; URINE CASTS NONE SEEN; URINE CRYSTALS NONE SEEN; URINE RBC <10 /HPF (<10); URINE SMALL ROUND CELLS NONE SEEN; URINE WBC <10 /HPF (<10); URINE YEAST NONE SEEN
[2019-07-29] MEDS: LEXAPRO PO SCH (20:47)
[2019-07-30] MEDS: LOPRESSOR IV SCH ×4 (04:21→20:58)
[2019-07-30] MEDS: CLINIMIX E 4.25%-5% SOLUTION 1,000 ML IV SCH ×3 (04:21→19:48)
[2019-07-30 08:47] LABS: HEMATOCRIT 22.7 % (37.0-47.0); HEMOGLOBIN 7.4 g/dL (12.0-16.0); MCH 32.6 PG (27-31); MCHC 32.6 g/dL (33-37); MPV 9.9 FL (7.4-10.4); RBC 2.27 XMIL (4.2-5.4); RDW 16.6 % (11.5-14.5); WBC 3.96 X1000 (4.8-10.8)
[2019-07-30 09:08] LABS: AGAP 11; ALB/GLOB RATIO 0.8; ALBUMIN 2.4 g/dL (3.5-5.0); ALKALINE PHOSPHATASE 127 U/L (32-104); BUN 7 mg/dL (8-22); CALCIUM 8.4 mg/dL (8.8-10.2); CHLORIDE 99 mmol/L (98-107); COSMO 269; CREATININE 0.4 mg/dL (0.5-0.9); ESTIMATED GFR > 60; GLUCOSE 111 mg/dL (70-104); GOT 28 U/L (10-30); GPT 10 U/L (10-36); POTASSIUM 3.6 mmol/L (3.5-5.1); SODIUM 135 mmol/L (136-145); TCO2 25 mmol/L (25-35); TOTAL BILIRUBIN 0.67 mg/dL (0.20-1.00); TOTAL PROTEIN 5.3 g/dL (6.3-8.3)
[2019-07-30] MEDS: MEGACE LIQUID PO SCH ×2 (10:01→20:58)
[2019-07-30] MEDS: ROCEPHIN 1 GM in NS 50 ML IV SCH (10:01)
[2019-07-30] MEDS: LIPOSYN 20% 250 ML IV SCH (10:02)
[2019-07-30] MEDS ORDERED: SAMSCA PO ONE ×2 (14:10→19:45)
[2019-07-30 14:11] LABS: RETIC% 0.19 % (0.8-2.1); RETIC-HE 24.8 PG (28.2-36.6)
[2019-07-30] MEDS ORDERED: ATIVAN IV PRN (14:11)
--- NOTE | 2019-07-30 18:18 | PROGRESS NOTE ---
DATE: 07/30/2019 SUBJECTIVE: Patient is a little bit awake, but looks that she has a depressed mood. No order issues noted as per nursing staff overnight. OBJECTIVE: Vital Signs: Temperature 98.2 degrees, heart rate 88, respiratory 19, blood pressure 104/70, O2 saturation 97% on room air. General: Chronically ill-appearing and frail, 63-year- old, female, lying in bed, in no acute distress. Cardiovascular: S1, S2 heard. No murmurs, gallops, or rubs. Regular rate and rhythm. Respiratory: Clear bilaterally to auscultation. No work of breathing or using accessory muscles. Abdomen: Mild tenderness to palpation in the right lower quadrant. No organomegaly noted. Extremities: No clubbing, cyanosis, or edema. Peripheral pulses present in both legs. Neurological: The patient is a little bit more sleepy today, but moves 4 extremities spontaneously. Answers to verbal stimuli. LABORATORY DATA: White cell count is 3.96, hemoglobin 7.4, hematocrit 22.7, platelets 258,000, with reticulocyte count of 24.8. Sodium 135. The total bilirubin is normal at 0.67. ASSESSMENT AND PLAN: 1. Hypovolemic, hyponatremia. The sodium is almost back to normal at 135. Also, potassium is normal. We have not checked phosphorus today, but from since yesterday is okay. So at this point, we will continue with the same management. 2. Electrolyte imbalance. Those have been replenished. 3. Protein-calorie malnutrition. We will continue with Clinimix and lipids. The patient is on Megace right now for poor appetite. 4. Depression. We will continue Lexapro. 5. Urinary tract infection secondary to Escherichia coli. We will continue with ceftriaxone and upon discharge, will change to Levaquin p.o. 6. Disposition. At this point, we will continue to monitor this patient closely. Once we have all labs back to normal, we will consult [facility] for depression for this patient. We will continue with physical therapy. cc: Zackery Mandujano MD
[2019-07-30] MEDS: LEXAPRO PO SCH (20:58)
[2019-07-30] MEDS: HALDOL IV SCH (20:59)
[2019-07-31] MEDS: CLINIMIX E 4.25%-5% SOLUTION 1,000 ML IV SCH ×2 (05:58→17:11)
[2019-07-31] MEDS: LOPRESSOR IV SCH ×4 (05:58→19:59)
[2019-07-31 07:40] LABS: HEMATOCRIT 20.9 % (37.0-47.0); HEMOGLOBIN 6.7 g/dL (12.0-16.0); MCH 31.6 PG (27-31); MCHC 32.1 g/dL (33-37); MCV 98.6 FL (81-99); MPV 9.4 FL (7.4-10.4); RBC 2.12 XMIL (4.2-5.4); RDW 16.4 % (11.5-14.5); WBC 7.95 X1000 (4.8-10.8)
[2019-07-31] MEDS ORDERED: NS 500 ML IV ONE (07:53)
[2019-07-31 07:59] LABS: AGAP 10; ALBUMIN 2.6 g/dL (3.5-5.0); BUN 9 mg/dL (8-22); CALCIUM 8.6 mg/dL (8.8-10.2); CHLORIDE 100 mmol/L (98-107); COSMO 267; CREATININE 0.4 mg/dL (0.5-0.9); ESTIMATED GFR > 60; GLUCOSE 106 mg/dL (70-104); PHOSPHORUS 4.5 mg/dL (2.7-4.5); POTASSIUM 4.1 mmol/L (3.5-5.1); SODIUM 134 mmol/L (136-145); TCO2 24 mmol/L (25-35)
[2019-07-31] MEDS: ROCEPHIN 1 GM in NS 50 ML IV SCH (08:23)
[2019-07-31] MEDS: MEGACE LIQUID PO SCH ×2 (08:24→19:59)
[2019-07-31] MEDS: LIPOSYN 20% 250 ML IV SCH (08:26)
--- NOTE | 2019-07-31 11:18 | PROGRESS NOTE ---
DATE: 07/31/2019 SUBJECTIVE: Patient looks a little more alert today. Answered questions appropriately. The patient reports not feeling depressed. OBJECTIVE: Vital Signs: Temperature 98.8 degrees, heart rate 108, respiratory rate 12, blood pressure 110/75, O2 saturation 97% on room air. General: This is a chronically ill looking 63- year-old female lying in bed, in no acute distress. Cardiovascular: S1-S2 heard. No murmurs, gallops, or rubs. Regular rate and rhythm. Respiratory: Clear bilaterally to auscultation. No work of breathing or using accessory muscles. Abdomen: Mild tenderness to palpation in the right lower quadrant but no organomegaly noted. Extremities: No clubbing, cyanosis, or edema. Peripheral pulses present in both legs. LABORATORY DATA: Pending at time of my dictation. ASSESSMENT AND PLAN: 1. Hypovolemic hyponatremia. Yesterday the sodium was almost back to normal. We are awaiting labs from this morning. Clinically, this patient is definitely more awake and alert. We will continue with the same management. 2. Electrolyte imbalance. Phosphorus and magnesium will be checked today. We will replenish as needed. 3. Protein-calorie malnutrition. We will continue with Clinimix and lipids. Patient encouraged to improve her nutrition. Patient is on Megace right now for appetite. 4. Depression. We will continue with Lexapro. 5. Urinary tract infection secondary to Escherichia coli. We will continue with ceftriaxone at this point and the patient will be given Levaquin upon discharge. 6. Disposition. At this point, we will continue to monitor this patient closely. Physical therapy is supposed to work with this patient. He looks like he is very weak but we will see what they have to say. cc: Zackery Mandujano MD
[2019-07-31] MEDS ORDERED: TYLENOL PO PRN (12:35)
[2019-07-31 19:15] LABS: HEMATOCRIT 25.6 % (37.0-47.0); HEMOGLOBIN 8.6 g/dL (12.0-16.0)
[2019-07-31] MEDS: HALDOL IV SCH (19:59)
[2019-07-31] MEDS: LEXAPRO PO SCH (19:59)
[2019-08-01] MEDS: LOPRESSOR IV SCH ×3 (01:58→17:00)
[2019-08-01] MEDS: CLINIMIX E 4.25%-5% SOLUTION 1,000 ML IV SCH ×2 (01:59→16:59)
[2019-08-01 07:44] LABS: AGAP 11; ALBUMIN 2.6 g/dL (3.5-5.0); BUN 9 mg/dL (8-22); CALCIUM 8.5 mg/dL (8.8-10.2); CHLORIDE 98 mmol/L (98-107); COSMO 262; CREATININE 0.4 mg/dL (0.5-0.9); ESTIMATED GFR > 60; GLUCOSE 119 mg/dL (70-104); PHOSPHORUS 3.9 mg/dL (2.7-4.5); POTASSIUM 3.7 mmol/L (3.5-5.1); SODIUM 131 mmol/L (136-145); TCO2 22 mmol/L (25-35)
[2019-08-01] MEDS: LIPOSYN 20% 250 ML IV SCH (09:15)
[2019-08-01] MEDS ORDERED: SAMSCA PO ONE (10:17)
[2019-08-01 10:42] LABS: BASO# 0.05 X1000 (0.0-0.2); BASO% 0.6 % (0.0-0.8); EOS% 2.6 % (0.0-10.0); HEMATOCRIT 25.6 % (37.0-47.0); HEMOGLOBIN 8.6 g/dL (12.0-16.0); IMM GRAN% 1.3 % (0.0-0.5); LYMPH# 1.55 X1000 (1.2-3.4); LYMPH% 19.9 % (20.5-51.1); MCH 32.2 PG (27-31); MCHC 33.6 g/dL (33-37); MCV 95.9 FL (81-99); MONO# 1.05 X1000 (0.11-0.59); MONO% 13.5 % (1.7-9.3); MPV 9.7 FL (7.4-10.4); NEUT# 4.85 X1000 (1.4-6.5); NEUT% 62.1 % (42.2-75.2); PLT 226 X1000 (130-400); RBC 2.67 XMIL (4.2-5.4); RDW 16.5 % (11.5-14.5)
[2019-08-01] MEDS: MEGACE LIQUID PO SCH ×2 (10:57→20:20)
[2019-08-01] MEDS: ROCEPHIN 1 GM in NS 50 ML IV SCH (10:57)
--- NOTE | 2019-08-01 14:19 | PROGRESS NOTE ---
DATE: 08/01/2019 SUBJECTIVE: The patient is a little bit more alert today. No complaints at this time. She does not have a good appetite. OBJECTIVE: Vital Signs: Temperature 98.6 degrees, heart rate 91, respiratory rate 18, blood pressure 124/73, O2 saturation 99% on 2 L nasal cannula. General: This is a 63-year-old, chronically ill-appearing 63-year-old female looking older than her stated age lying in bed, in no acute distress. Cardiovascular: S1 and S2 heard. No murmurs, gallops, or rubs. Regular rate and rhythm. Respiratory: Clear bilaterally to auscultation. No work of breathing or using accessory muscles. Abdomen: Soft, nontender to palpation. Bowel sounds present. No organomegaly. Extremities: No clubbing, cyanosis, or edema. Peripheral pulses present in both legs. Neurological: Patient alert and oriented x3. Moves 4 extremities. LABORATORY DATA: White cell count 7.8, hemoglobin 8.6, hematocrit 25.6, platelets 226,000. Sodium 131 with normal renal function. Calcium 8.5. ASSESSMENT AND PLAN: 1. Hypovolemic hyponatremia. Sodium is a little bit low today. Clinically, this patient continues to be more alert and awake. We will provide 1 more dose of Samsca. 2. Electrolyte imbalance. Phosphorus and magnesium have been checked and phosphorus okay as well as magnesium. We will continue to monitor. 3. Protein-calorie malnutrition. We will continue with Clinimix and lipids. The patient has been encouraged to improve her nutrition. We will continue with Megace. 4. Depression. We will continue with Lexapro. 5. Escherichia coli urinary tract infection. We will continue with ceftriaxone and whenever this patient is ready to go, we will change to Levaquin. 6. Disposition. At this point, the patient is clinically stable. Physical Therapy working with this patient. They will let us know if this patient needs to go to rehab facility or if she can go home with home health. We will keep this patient over the weekend. cc: Zackery Mandujano MD [facility]
[2019-08-01] MEDS: LEXAPRO PO SCH (20:20)
[2019-08-02] MEDS: LOPRESSOR IV SCH ×5 (00:10→22:51)
[2019-08-02] MEDS: CLINIMIX E 4.25%-5% SOLUTION 1,000 ML IV SCH ×3 (03:17→20:59)
[2019-08-02] MEDS: LIPOSYN 20% 250 ML IV SCH (08:18)
[2019-08-02] MEDS: ROCEPHIN 1 GM in NS 50 ML IV SCH (08:18)
[2019-08-02] MEDS: MEGACE LIQUID PO SCH ×3 (08:19→21:03)
[2019-08-02 08:34] LABS: AGAP 11; ALBUMIN 2.9 g/dL (3.5-5.0); BUN 13 mg/dL (8-22); CALCIUM 8.9 mg/dL (8.8-10.2); CHLORIDE 99 mmol/L (98-107); COSMO 266; CREATININE 0.4 mg/dL (0.5-0.9); ESTIMATED GFR > 60; GLUCOSE 117 mg/dL (70-104); PHOSPHORUS 4.1 mg/dL (2.7-4.5); POTASSIUM 4.1 mmol/L (3.5-5.1); SODIUM 132 mmol/L (136-145); TCO2 22 mmol/L (25-35)
[2019-08-02 08:48] LABS: BASO# 0.05 X1000 (0.0-0.2); EOS# 0.14 X1000 (0.0-0.7); EOS% 2.9 % (0.0-10.0); HEMATOCRIT 27.2 % (37.0-47.0); HEMOGLOBIN 9.2 g/dL (12.0-16.0); IMM GRAN# 0.14 X1000 (0.0-0.04); IMM GRAN% 2.9 % (0.0-0.5); LYMPH# 1.46 X1000 (1.2-3.4); LYMPH% 30.4 % (20.5-51.1); MCH 32.5 PG (27-31); MCHC 33.8 g/dL (33-37); MCV 96.1 FL (81-99); MONO% 20.8 % (1.7-9.3); MPV 9.7 FL (7.4-10.4); NEUT# 2.01 X1000 (1.4-6.5); PLT 253 X1000 (130-400); RBC 2.83 XMIL (4.2-5.4); RDW 15.8 % (11.5-14.5)
[2019-08-02 09:44] LABS: LYMPHS 28 % (21-51); MONO 18 % (1-9); SEGS 52 % (42-75)
--- NOTE | 2019-08-02 15:36 | PROGRESS NOTE ---
DATE: 08/02/2019 SUBJECTIVE: Patient reports feeling fine. Reports eating better. She has not been able to sit up and walk around. OBJECTIVE: Vital Signs: Temperature 97.9, heart rate 97, respiratory rate 21, blood pressure 145/89, O2 saturation 99% on room air. General Examination: This is a 63-year-old, chronically ill-appearing, looking older than her stated age, lying in bed, in no acute distress. Cardiovascular: S1 and S2 heard. No murmurs, gallops, or rubs. Regular rate and rhythm. Respiratory: Clear bilaterally to auscultation. No work of breathing or using accessory muscles. Abdomen: Soft. Nontender to palpation. Bowel sounds present. No organomegaly. Extremities: No clubbing, cyanosis, or edema. Peripheral pulses present in both legs. Neurological: Patient alert and oriented x3. Moves 4 extremities. LABORATORY DATA: Reviewed. ASSESSMENT AND PLAN: 1. Hypovolemic, hyponatremia. Resolved. 2. Electrolyte imbalance. Phosphorus and magnesium are low so we are going replenish today. 3. Protein-calorie malnutrition. Patient is on Clinimix and lipids. The patient is still not eating very well. She has been placed on Megace. We will continue to monitor. 4. Depression. We will continue with Lexapro. 5. Escherichia coli urinary tract infection. We will continue with ceftriaxone and whenever this patient is ready, we will switch to Levaquin. 6. Disposition. At this point, the patient is medically stable. Physical therapy is working with this patient. We will check with them tomorrow if this patient needs to go to a rehab facility or if she can go home with home health. We will continue to monitor this patient closely. cc: Zackery Mandujano MD
[2019-08-02] MEDS: LEXAPRO PO SCH ×2 (20:58→21:04)
[2019-08-03] MEDS: LOPRESSOR IV SCH ×2 (05:04→11:21)
[2019-08-03 08:31] LABS: AGAP 12; ALBUMIN 3.1 g/dL (3.5-5.0); BUN 16 mg/dL (8-22); CALCIUM 9.4 mg/dL (8.8-10.2); CHLORIDE 93 mmol/L (98-107); COSMO 256; CREATININE 0.4 mg/dL (0.5-0.9); ESTIMATED GFR > 60; GLUCOSE 116 mg/dL (70-104); PHOSPHORUS 3.8 mg/dL (2.7-4.5); POTASSIUM 4.3 mmol/L (3.5-5.1); SODIUM 126 mmol/L (136-145); TCO2 21 mmol/L (25-35)
[2019-08-03] MEDS: CLINIMIX E 4.25%-5% SOLUTION 1,000 ML IV SCH (08:59)
[2019-08-03] MEDS: LIPOSYN 20% 250 ML IV SCH (08:59)
[2019-08-03 09:00] LABS: BASO# 0.04 X1000 (0.0-0.2); BASO% 0.8 % (0.0-0.8); EOS# 0.05 X1000 (0.0-0.7); EOS% 1.1 % (0.0-10.0); HEMATOCRIT 29.6 % (37.0-47.0); HEMOGLOBIN 9.9 g/dL (12.0-16.0); IMM GRAN# 0.08 X1000 (0.0-0.04); IMM GRAN% 1.7 % (0.0-0.5); LYMPH# 1.27 X1000 (1.2-3.4); LYMPH% 26.7 % (20.5-51.1); MCH 31.8 PG (27-31); MCHC 33.4 g/dL (33-37); MCV 95.2 FL (81-99); MONO# 0.96 X1000 (0.11-0.59); MONO% 20.2 % (1.7-9.3); MPV 9.8 FL (7.4-10.4); NEUT# 2.35 X1000 (1.4-6.5); NEUT% 49.5 % (42.2-75.2); PLT 257 X1000 (130-400); RBC 3.11 XMIL (4.2-5.4); RDW 15.5 % (11.5-14.5); WBC 4.75 X1000 (4.8-10.8)
[2019-08-03] MEDS: ROCEPHIN 1 GM in NS 50 ML IV SCH (09:01)
[2019-08-03] MEDS: MEGACE LIQUID PO SCH (09:04)
[2019-08-03 10:09] LABS: LYMPHS 28 % (21-51); MONO 16 % (1-9); SEGS 56 % (42-75)
[2019-08-03] MEDS ORDERED: SAMSCA PO ONE (10:47)
[2019-08-03] MEDS ORDERED: LEVAQUIN 500 MG/D5W 500 MG/100 ML IVPB IV SCH (11:00)
--- NOTE | 2019-08-03 11:13 | PROGRESS NOTE ---
DATE: 08/03/2019 SUBJECTIVE: The patient is more awake and alert. The patient currently is eating a little bit better, eating almost 50% of her meals. No other issues noted. OBJECTIVE: Vital Signs: Temperature 98.2 degrees, heart rate 108, respiratory rate 17, blood pressure 146/89, O2 saturation 100% on room air. General: This is a chronically ill-looking, frail, 63-year-old, female, lying in bed in no acute distress. Cardiovascular: S1, S2 heard. No murmurs, gallops, or rubs. Regular rate and rhythm. Respiratory: Clear bilaterally to auscultation. No work of breathing or using accessory muscles. Abdomen: Soft, nontender to palpation. Bowel sounds present. No organomegaly. Extremities: No clubbing, cyanosis, or edema. Peripheral pulses present in both legs. Neurological: The patient is alert and oriented x3. Moves all 4 extremities. LABORATORY DATA: Reviewed. ASSESSMENT AND PLAN: 1. Hypovolemic hyponatremia. Sodium is 126. Patient encouraged to eat and drink. Probably will provide 1 dose of Samsca today. 2. Electrolyte imbalance. The phosphorus is completely normal today. Magnesium is also back to normal. Will continue to monitor. 3. Protein-calorie malnutrition. Because the patient is feeling better, we have stopped Clinimix and lipids. The patient is on Megace. Will continue with the same management. 4. Depression. Will continue with Lexapro. 5. Escherichia coli. At this point, in anticipation for discharging this patient, will stop vancomycin, which she has received for 6 days. We are going to stop it, and start Levaquin 500 mg. 6. Disposition. At this point, the patient is medically stable. Physical Therapy is working with this patient, and apparently, as per their report, the patient is very weak, so at this point, will consult medical social consultant for rehab placement. cc: Zackery Mandujano MD [facility]
[2019-08-03 11:23] VITALS: BP 109/78
--- NOTE | 2019-08-04 07:49 | DISCHARGE SUMMARY ---
ADMISSION DATE: 07/26/2019 DISCHARGE DATE: 08/03/2019 DISCHARGE DIAGNOSES: 1. Failure to thrive. 2. Multiple electrolyte derangements with hyponatremia, hypokalemia, hypocalcemia. Resolved. 3. Transaminitis. Improved. 4. Urinary tract infection secondary to Escherichia coli, under treatment. 5. Depression. 6. Tobacco use and abuse. CONSULTATIONS: None. PROCEDURES: 1. Chest x-ray done on admission showed likely left basilar atelectasis. 2. Head CT showed no evidence of acute intracranial disease. Right sphenoid sinusitis. HOSPITAL COURSE: This is a 63-year-old, female, who is very hard of hearing, who apparently was getting nauseated and throwing up, so called ambulance. The patient was brought to the emergency department. She was found to have multiple electrolyte derangements with sodium 112, potassium 2.3, chloride 61, calcium 6.1, and dehydrated. She was placed in the intensive care unit. We were checking electrolytes every single day, and progressively she started feeling better. At the time of discharge, her labs are okay. She was eating at least 50% of her meals. Patient encouraged to continue eating. The patient has been started on Lexapro for depression. The patient is going to be discharged in stable condition. DISCHARGE PHYSICAL EXAMINATION: Vital Signs: Temperature 97.5 degrees, heart rate 108, respiratory rate 17, blood pressure 146/89, O2 saturation 99% on room air. General: This is a 63- year-old, female, looking a little malnourished, lying in bed in no acute distress. Cardiovascular: S1, S2 heard. No murmurs, gallops, or rubs. Regular rate and rhythm. Respiratory: Clear bilaterally to auscultation. No work of breathing or using accessory muscles. Abdomen: Soft, nontender to palpation. Bowel sounds present. No organomegaly. Extremities: No clubbing, cyanosis, or edema. Peripheral pulses present in both legs. Neurological: The patient is alert and oriented x3. Moves all 4 extremities. DISCHARGE DISPOSITION: Home to self-care. DISCHARGE MEDICATIONS: 1. Megestrol 400 mg 1 pack p.o. b.i.d. 2. Lexapro 20 mg 1 tablet p.o. at bedtime. 3. Levofloxacin 500 mg 1 tablet p.o. daily for 7 days. cc: Zackery Mandujano MD
== END 2019-08-03 15:45 | disposition home health service (06) | DRG 641 ==
LOC: SUPCPDRO → ED 11:23 → SUATTDRO 15:59 → ICU 15:59 → 3N 07-29 21:02
PROVIDERS: ATTEND Internal Medicine

== ENCOUNTER 2019-08-20 17:40 | Inpatient (IN) ==
[2019-08-20 19:09] LABS: BASO# 0.04 X1000 (0.0-0.2); BASO% 0.3 % (0.0-0.8); EOS# 0.13 X1000 (0.0-0.7); HEMOGLOBIN 8.3 g/dL (12.0-16.0); IMM GRAN% 0.8 % (0.0-0.5); LYMPH# 1.56 X1000 (1.2-3.4); MCH 31.4 PG (27-31); MCHC 33.2 g/dL (33-37); MCV 94.7 FL (81-99); MONO# 1.28 X1000 (0.11-0.59); MONO% 9.9 % (1.7-9.3); MPV 9.5 FL (7.4-10.4); NEUT# 9.86 X1000 (1.4-6.5); PLT 737 X1000 (130-400); RBC 2.64 XMIL (4.2-5.4); RDW 16.5 % (11.5-14.5); WBC 12.97 X1000 (4.8-10.8)
[2019-08-20 19:30] LABS: AGAP 19; ALB/GLOB RATIO 0.9; ALBUMIN 3.2 g/dL (3.5-5.0); ALKALINE PHOSPHATASE 117 U/L (32-104); BUN 12 mg/dL (8-22); CALCIUM 9.5 mg/dL (8.8-10.2); CHLORIDE 98 mmol/L (98-107); COSMO 269; CREATININE 0.9 mg/dL (0.5-0.9); ESTIMATED GFR > 60; GLUCOSE 113 mg/dL (70-104); GOT 13 U/L (10-30); GPT 8 U/L (10-36); POTASSIUM 3.6 mmol/L (3.5-5.1); SODIUM 134 mmol/L (136-145); TCO2 17 mmol/L (25-35); TOTAL BILIRUBIN 0.51 mg/dL (0.20-1.00); TOTAL PROTEIN 6.6 g/dL (6.3-8.3)
[2019-08-20] MEDS ORDERED: NS 1,000 ML IV ONE ×2 (21:33)
[2019-08-20] MEDS ORDERED: VANCOMYCIN 1 GM/NS 1 GM/250 ML IVPB IV ONE (21:40)
[2019-08-20] MEDS ORDERED: ZOSYN 4.5 GM in NS 100 ML IV ONE (21:40)
[2019-08-20] MEDS ORDERED: THIAMINE 100 MG in NS 50 ML IV ONE (22:07)
[2019-08-20 22:16] LABS: INR 1.04; PROTIME 13.8 Seconds (11.0-16.0)
[2019-08-20 22:17] LABS: PTT 29.6 Seconds (22.3-41.8)
[2019-08-20 22:20] LABS: MAGNESIUM 1.7 mg/dL (1.5-2.7)
[2019-08-20] MEDS ORDERED: THIAMINE 500 MG in NS 50 ML IV ONE (23:15)
--- NOTE | 2019-08-20 23:21 | EKG Report ---
Test Performed on : 08/20/2019 11:01:40 PM Test Reason : weakness Blood Pressure : / mmHG Vent. Rate : 117 BPM Atrial Rate : 117 BPM P-R Int : 112 ms QRS Dur : 064 ms QT Int : 340 ms P-R-T Axes : 085 068 124 degrees QTc Int : 474 ms Sinus tachycardia. with premature supraventricular complexes. Nonspecific ST and T wave abnormality Abnormal ECG When compared with ECG of 27-JUL-2019 06:54, premature supraventricular complexes. are now present Unconfirmed Result
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
[2019-08-21 02:01] LABS: URINE SOURCE CATH
[2019-08-21 02:10] LABS: BILIRUBIN URINE NEGATIVE (NEGATIVE); BLOOD URINE NEGATIVE (NEGATIVE); COLOR YELLOW; GLUCOSE URINE NEGATIVE (NEGATIVE); KETONE URINE NEGATIVE (NEGATIVE); LEUKOCYTES URINE NEGATIVE (NEGATIVE); NITRITE URINE NEGATIVE (NEGATIVE); PH URINE 6.5; PROTEIN URINE TRACE mg/dL (NEGATIVE); SP GRAVITY URINE 1.015; TURBIDITY URINE CLEAR (CLEAR); UROBILINOGEN URINE 2 mg/dL (NORMAL)
[2019-08-21 02:11] LABS: UR EPITHELIAL CELLS <10 /HPF (<10); URINE BACTERIA NEGATIVE /HPF; URINE RBC <10 /HPF (<10); URINE WBC <10 /HPF (<10)
[2019-08-21] MEDS ORDERED: NS 1,000 ML IV SCH ×2 (02:45)
[2019-08-21] MEDS ORDERED: VITAMIN D PO SCH (02:45)
[2019-08-21] MEDS ORDERED: VANCOMYCIN IV PER PHARMACY MISC SCH (02:45)
[2019-08-21] MEDS ORDERED: VANCOMYCIN 250 MG in NS 100 ML IV ONE (03:00)
--- NOTE | 2019-08-21 05:42 | Diag Imaging Result Doc PS360 ---
EXAM: CHEST-2 VIEWS HISTORY: short of breath TECHNIQUE: Two views COMPARISON: 07/26/2019 FINDINGS: The lungs are hyperexpanded. The heart is not enlarged. The vessels are small. There are no infiltrates. No pleural effusions. IMPRESSION: Emphysema Electronically signed by Leonard Gresham 08/21/2019 5:40 AM
[2019-08-21] MEDS: ZOSYN 3.375 GM in NS 50 ML IV SCH ×4 (05:48→23:50)
[2019-08-21] MEDS ORDERED: DUONEB (A & A) INH PRN (07:01)
[2019-08-21] MEDS: DUONEB (A & A) INH SCH ×4 (08:54→20:36)
[2019-08-21] MEDS ORDERED: CLINIMIX E 4.25%-5% SOLUTION 1,000 ML IV SCH (09:00)
[2019-08-21] MEDS: MEGACE LIQUID PO SCH ×2 (09:36→23:51)
[2019-08-21] MEDS: LIPOSYN 20% 250 ML IV SCH (09:44)
--- NOTE | 2019-08-21 09:57 | HISTORY AND PHYSICAL ---
CHIEF COMPLAINT: Weakness. HISTORY OF PRESENT ILLNESS: Ms. Malia Mcneil is a 63-year-old female who does not have any significant past medical history. She does have a history of indulgence in alcohol and cigarette smoking. She indicates that she quit both habits about 2 to 3 months ago. She presents to the hospital because of generalized weakness which has been progressively getting worse. She is unable to carry out her usual activity. She has lost about 10 pounds in the last 6 months. She has had a poor appetite. On presenting to the hospital, the patient was noted to have a white count of about 12.97 with a hematocrit of 25. Her lactate level was found to 4.0, vitamin D level was found to be 18.5. The patient was recently in the hospital between 07/26/2019 and 08/06/2019. During the hospital stay, the patient was managed for failure to thrive with multiple electrolyte abnormalities, transaminitis, and urinary tract infection. The patient was seen and evaluated in the ER. She will now be admitted to the floor for further management. PAST MEDICAL HISTORY: Failure to thrive, electrolyte abnormalities, abnormal liver function test, urinary tract infection, depression. SOCIAL HISTORY: The patient quit cigarette smoking and indulging in alcohol about 2 to 3 months ago. She denies any drug use. ALLERGIES: No known drug allergies. FAMILY HISTORY: Positive for cancer as well as hypertension. PAST SURGICAL HISTORY: Noncontributory. MEDICATIONS: Lexapro 20 mg p.o. at bedtime, levofloxacin 500 mg p.o. daily, megestrol acetate 400 mg p.o. twice a day. REVIEW OF SYSTEMS: Constitutional: No fever. 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 Eyes: Uses glasses. ENT: Has hearing loss with sinus problems. Cardiovascular: No chest pain. Respiratory: No cough. GI: No nausea, vomiting, diarrhea. : No dysuria. Endocrinology: No thyroid, diabetes. Psychiatric: She does have depression. Hematology: No bleeding problems. Musculoskeletal: No joint pains. Dermatology: No skin lesions. PHYSICAL EXAMINATION: VITAL SIGNS: Temperature 98.8 degrees, pulse 140, respirations 18, blood pressure is 80/48, oxygen saturation is 100%. HEENT: Atraumatic, normocephalic. She is anicteric. Extraocular movements intact. No oral lesions noted. NECK: No lymphadenopathy or thyromegaly. CARDIOVASCULAR: S1, S2. RESPIRATORY SYSTEM: Has evidence of good air entry bilaterally. ABDOMEN: Soft, nontender. No masses felt. EXTREMITIES: No evidence of edema. CENTRAL NERVOUS SYSTEM: No obvious focal deficits noted. LABORATORY DATA: WBC is 12.97, hematocrit is 25, platelet count of 737. Sodium is 134, potassium 3.6, chloride is 98, bicarb is 17, BUN is 12, creatinine 0.9, calcium 9.5. Lactate level is 4.0. UA shows less than 10 wbc/hpf. Alcohol level with none detected. Chest x-ray shows evidence of emphysema. ASSESSMENT AND PLAN: 1. Generalized weakness. Etiology not clear. Probably multifactorial. We will check patient's thyroid function test, SARIAH level. Vitamin D level noted to be low and we will start patient on vitamin D replacement. Check ESR. Follow up on cultures. Correct any electrolyte abnormalities. 2. Failure to thrive. Recommend nutritional supplements, physical therapy and adequate hydration. 3. Anemia. Check iron studies including B12, folate and stool for occult blood. 4. Chronic obstructive pulmonary disease. Nebulized bronchodilators as needed. 5. Probable sepsis. Maintain patient on intravenous fluids. Follow up on culture results. Antibiotics where necessary. 6. Deep vein thrombosis prophylaxis. Sequential compression devices. 7. Gastrointestinal prophylaxis. Proton pump inhibitor. 8. Depression. Continue antidepressant. cc: Isacc Calhoun MD MTDD
[2019-08-21] MEDS: CLINIMIX E 4.25%-5% SOLUTION 1,000 ML IV SCH (16:06)
[2019-08-21] MEDS ORDERED: LEXAPRO PO SCH (21:00)
--- NOTE | 2019-08-21 21:09 | GASTROENTEROLOGY CONSULTATION ---
DATE: 08/21/2019 REASON FOR CONSULTATION: Malnutrition. HISTORY OF PRESENT ILLNESS: Ms Malia Mcneil is a 63-year-old woman with past medical history of tobacco abuse, alcoholism, severe protein calorie malnutrition, depression, alcoholic liver disease, failure to thrive, who had a recent admission for volume depletion, urinary tract infection, who re-presents with weakness, weight loss, tremors, and decreased appetite. On presentation the patient reports not feeling like eating for several weeks. She denies any abdominal pain, heartburn, trouble swallowing, nausea, vomiting, change in bowel habits including diarrhea, constipation, rectal bleeding, melena. No cough. No shortness of breath. No headaches. She does complain of some dizziness upon standing. No focal weakness, generalized weakness. She says that she has drunk heavily up until about 2 months ago when her symptoms began. She was drinking about on average 5 to 6 shots a day but could drink much more than that. She has been drinking heavily for the last 10 to 12 years. She does smoke 2-1/2 to 3 packs of cigarettes a day. In the ED when she presented her vital signs showed temperature of 98.8, heart rate of 140, respiratory rate 18, blood pressure 80/48, O2 saturation 100%. Imaging showed emphysema with left basilar atelectasis. Chest x-ray was from 07/26 which was emphysema. Head CT from 07/28 showed no evidence of intracranial process. Chest x-ray yesterday shows emphysema. She was admitted overnight and was started on Clinimix and IV lipids as well as IV fluids. Vancomycin and Zosyn were started empirically as well as Megace. She is on Lexapro, albuterol, DuoNeb as needed and Remeron. REVIEW OF SYSTEMS: As per HPI, otherwise 12 point review of systems negative. PAST MEDICAL HISTORY: She says none although she does have a history of alcoholism, emphysema on imaging, tobacco abuse, alcohol liver disease, folate deficiency anemia, severe protein calorie malnutrition with a BMI of 17, failure to thrive, depression. PAST SURGICAL HISTORY: None. MEDICATIONS: She was discharged on were Megace, Lexapro and levofloxacin. ALLERGIES: No known drug allergies. FAMILY HISTORY: Father had lung and throat cancer. SOCIAL HISTORY: As per HPI. No drug use. PHYSICAL EXAMINATION: Vital Signs: Currently temperature 99.2, heart rate 108, respiratory rate 22, blood pressure 114/77, O2 saturation 100% on room air. General: Patient is awake, alert, oriented, no acute distress. She is thin. HEENT: Sclerae anicteric. Moist mucous membranes. Extraocular motor intact. Neck: Supple. No JVD or lymphadenopathy. Cardiac: Regular rhythm. No murmurs, rubs, or gallops. Lungs: Clear to auscultation bilaterally. Abdomen: Soft, nontender, nondistended. Normoactive bowel sounds. No rebound or guarding. Extremities: No clubbing, cyanosis or edema. Neurologic: Nonfocal. No asterixis. She does have some resting tremor and intention tremor. LABS: White count of 12.97, hemoglobin 8.3, MCV of 94.7, platelets of 737,000, ESR 45. INR of 1.04. Sodium of 134, potassium 3.6, chloride of 98, bicarb 17, BUN of 12, creatinine 0.9, glucose of 113. LFTs are normal except for alkaline phosphatase of 117. ProBNP of 577, albumin of 3.2, total protein of 6.6, prealbumin of 11.6. Lactate on admission was 4.0, now it is 1.1, B12 is 803, TSH of 18.5. UA shows trace protein, urine alcohol is negative. ASSESSMENT AND PLAN: Ms. Malia Mcneil is a 63-year-old woman with tobacco, alcoholism, severe protein calorie malnutrition, depression who presented with hypotension, tachycardia and leukocytosis concerning for systemic inflammatory response syndrome. Urinalysis is negative. Chest x-ray is negative. Cultures are pending. She has a positive Hemoccult however she is not iron deficient. She has anemia of chronic disease and folate deficiency. She denies any overt gastrointestinal bleeding. She does admit that her decreased appetite she has maybe attributed to her alcohol abuse. She says when she is drinking she does not really eat much. However her last drink she says was 2 months ago. She certainly needs a EGD and colonoscopy since she has never had one in the past. I would also consider other routine screening including cervical exam and mammogram if EGD and colonoscopy is negative. Emphysema could also be contributing to her weight loss, however she is not requiring any oxygen and she does not have any signs of end-stage chronic obstructive pulmonary disease. Interestingly she does have thrombocytosis, mildly elevated ESR and slightly elevated alkaline phosphatase, her liver function tests are otherwise normal. At this point I would recommend repleting her folate, giving her thiamin, encourage p.o. intake however she is not eating. She is currently on Clinimix and lipids. She may ultimately need a procedure while she is here since she has bounced back within the last [address] Ramsey will determine when she should have endoscopic evaluation tomorrow. Thank you for this consult. Will follow with you. Please call with any questions or concerns.
[2019-08-21] MEDS ORDERED: SODIUM CHLORIDE 0.9% INJ SCH (21:30)
[2019-08-21] MEDS: REMERON PO SCH (23:52)
[2019-08-21] MEDS: PEPCID IV SCH (23:55)
[2019-08-22] MEDS: CLINIMIX E 4.25%-5% SOLUTION 1,000 ML IV SCH ×2 (00:11→16:30)
[2019-08-22] MEDS: DUONEB (A & A) INH SCH ×7 (00:13→23:28)
[2019-08-22] MEDS: ZOSYN 3.375 GM in NS 50 ML IV SCH ×4 (05:05→23:49)
[2019-08-22 09:01] LABS: AGAP 12; ALBUMIN 2.8 g/dL (3.5-5.0); BUN 12 mg/dL (8-22); CALCIUM 8.5 mg/dL (8.8-10.2); CHLORIDE 103 mmol/L (98-107); COSMO 272; CREATININE 0.6 mg/dL (0.5-0.9); ESTIMATED GFR > 60; GLUCOSE 95 mg/dL (70-104); IRON SATURATION 38 %; MAGNESIUM 1.5 mg/dL (1.5-2.7); SODIUM 136 mmol/L (136-145); TCO2 21 mmol/L (25-35); TIBC 159 ug/dL; TOTAL IRON 61 ug/dL (49-151); UNBOUND IRON 98 ug/dL (112-346)
[2019-08-22 09:03] LABS: BASO# 0.05 X1000 (0.0-0.2); BASO% 0.4 % (0.0-0.8); EOS# 0.13 X1000 (0.0-0.7); EOS% 1.1 % (0.0-10.0); HEMATOCRIT 19.8 % (37.0-47.0); HEMOGLOBIN 6.3 g/dL (12.0-16.0); IMM GRAN# 0.35 X1000 (0.0-0.04); IMM GRAN% 3.1 % (0.0-0.5); LYMPH# 1.72 X1000 (1.2-3.4); MCH 30.7 PG (27-31); MCHC 31.8 g/dL (33-37); MCV 96.6 FL (81-99); MONO# 0.74 X1000 (0.11-0.59); MONO% 6.5 % (1.7-9.3); MPV 9.4 FL (7.4-10.4); NEUT# 8.44 X1000 (1.4-6.5); NEUT% 73.9 % (42.2-75.2); PLT 525 X1000 (130-400); RBC 2.05 XMIL (4.2-5.4); RDW 17.1 % (11.5-14.5); WBC 11.43 X1000 (4.8-10.8)
[2019-08-22] MEDS ORDERED: NS 500 ML IV ONE (09:26)
[2019-08-22 09:31] LABS: FERRITIN 706 ng/mL (13-150)
[2019-08-22] MEDS: LEXAPRO PO SCH (09:45)
[2019-08-22] MEDS: PEPCID IV SCH (09:45)
[2019-08-22] MEDS: MEGACE LIQUID PO SCH ×2 (09:46→20:53)
[2019-08-22] MEDS: THIAMINE 100 MG in NS 50 ML IV SCH (10:04)
[2019-08-22] MEDS: FOLIC ACID 1 MG in NS 50 ML IV SCH (10:04)
[2019-08-22] MEDS ORDERED: VANCOMYCIN 1 GM/NS 1 GM/250 ML IVPB IV SCH (11:00)
[2019-08-22] MEDS: LIPOSYN 20% 250 ML IV SCH (11:13)
--- NOTE | 2019-08-22 14:47 | PROGRESS NOTE ---
DATE: 08/22/2019 SUBJECTIVE: Patient reports feeling fine. According to nursing staff, her mentation has been up and down. No other complaints noted. OBJECTIVE: Vital Signs: Temperature is 100.2 degrees, heart rate 114, respiratory 16, blood pressure 120/76, O2 saturation 100% on room air. General Examination: This is a chronically ill- looking, very malnourished, 63-year-old female lying in bed, in no acute distress. Cardiovascular: S1, S2 heard. No murmurs, gallops, or rubs. Regular rate and rhythm. Respiratory: Clear bilaterally to auscultation. No work of breathing or using accessory muscles. Abdomen: Soft, nontender to palpation. Bowel sounds present. No organomegaly. Extremities: No clubbing, cyanosis, or edema. Peripheral pulses present in both legs. Neurological: The patient is awake, oriented x3. The patient has some hand tremors noted. Moves 4 extremities. LABORATORY DATA: White cell count 11.43, hemoglobin 6.3, hematocrit 19.8, platelets 525,000, with potassium 3.0. ASSESSMENT AND PLAN: 1. Anemia of chronic disease. Hemoglobin has dropped to 6.4 although there are no signs of gastrointestinal bleeding. We are going to provide 2 units of blood. We will continue with folate and thiamine supplementation. GI has evaluated this patient and they think that this patient will need upper endoscopy and colonoscopy. That is for evaluation of malnutrition and also for worsening anemia. In the meantime we will continue with Clinimix and lipids. 2. Possible sepsis. There was no source of sepsis at presentation. She started spiking a mild fever of 100.2 degrees. The patient has been started empirically on vancomycin on . At this point, we will do a CT of chest, abdomen and pelvis to see if there is any source of infection we can be able to identify. We will continue to monitor. 3. Failure to thrive. The patient is on Clinimix and lipids and we will continue with the same. 4. Chronic obstructive pulmonary disease. Patient is not in any exacerbation. We will continue to monitor. 5. Depression. Patient is on escitalopram and we have added Remeron to her current treatment. We will continue to monitor. 6. Disposition. We will continue to monitor the patient closely. cc: Zackery Mandujano MD
--- NOTE | 2019-08-22 15:43 | Diag Imaging Result Doc PS360 ---
EXAM: CT THORAX/ABD/PELVIS W/WO CON HISTORY: fever of unknown source TECHNIQUE: 1. CT chest with and without intravenous contrast 2. CT abdomen and pelvis with and without intravenous contrast COMPARISON: None. FINDINGS: Chest: Trace pleural fluid. No cardiomegaly. No aortic aneurysm or dissection. No enlarged lymph nodes. Moderate emphysema. There is apical scarring. No infiltrates. No bronchiectasis. There is basilar atelectasis. Abdomen and pelvis: No renal stones. No hydronephrosis. No aortic aneurysm. There is fatty infiltration of the liver and there is a cyst in the left lobe measuring 14 mm. Normal spleen, pancreas, gallbladder, and adrenal glands. Small renal cysts. No bowel obstruction. The urinary bladder is overly distended. There is thickening to the wall of the sigmoid colon and rectum. Normal appendix. There are multiple colonic diverticula. IMPRESSION: Chest: 1. No pneumonia 2. Emphysema 3. Basilar atelectasis Abdomen and pelvis: 1. There appears to be colitis of the distal colon 2. [place] distended urinary bladder 3. Fatty infiltration of the liver 4. Hepatic and renal cysts This exam was performed using automated exposure control, adjustment of mA or kV according to patient size, and/or use of iterative reconstruction technique. Electronically signed by Leonard Gresham 08/22/2019 3:40 PM
[2019-08-22] MEDS: PROTONIX IV SCH (20:53)
[2019-08-22] MEDS: REMERON PO SCH (20:53)
[2019-08-23] MEDS: CLINIMIX E 4.25%-5% SOLUTION 1,000 ML IV SCH ×2 (01:33→15:16)
[2019-08-23] MEDS: DUONEB (A & A) INH SCH ×6 (04:02→23:00)
[2019-08-23] MEDS: ZOSYN 3.375 GM in NS 50 ML IV SCH ×3 (05:50→18:01)
--- NOTE | 2019-08-23 06:25 | GASTROENTEROLOGY PROGRESS NOTE ---
DATE: 08/22/2019 SUBJECTIVE: Patient resting in bed. She has poor oral intake. She is low appetite. She has liquid green stool. She denies any nausea, vomiting, vomiting blood. She denies any blood in the stools. OBJECTIVE: Vitals: Temperature 98.8 degrees, pulse rate 110, respiratory rate 18, blood pressure 122/85, saturating 100% room air. Body weight of 99 pounds 8 ounces. BMI 17.1 kg/m2. General: She is a thinly built, lying in bed, in no acute distress. HEENT: Pale conjunctivae. No icterus. Pupils equal, reactive to light. Neck: Supple. Abdomen: Soft, mild discomfort in the pelvic region. No rebound or guarding. Extremities: No cyanosis, clubbing. Neurologic: She is alert, awake, oriented to time, place, person. LABS: Hemoglobin and hematocrit is 6.3, and 19.8, white count of 11.43, platelet count of 525,000. Sodium 130, potassium 3, chloride 103, bicarb 21, anion gap 12, BUN of 12, creatinine 0.2. Glucose of 95, calcium 8.5, phosphorus 3.0, magnesium 1.5, iron of 61, TIBC 159, total saturation of iron is 38, ferritin of 706. AST 13, ALT 8, alkaline phosphatase 117, total bilirubin is 0.51, total protein 6.6, albumin of 2.8., lactate of 1.1. B12 536, folate 2.9. Vitamin D level is 18.5. TSH 0.68. Urinalysis showing trace protein. INR 1.04, PT of 13.8, PTT of 29.6. Stool occult blood was positive. Blood culture x2 negative at 48 hours. Flu screen was negative for A and B. She had a chest, abdomen and pelvis CT scan done today which showed: 1. Evidence of no pneumonia. 2. Emphysema. 3. Bilateral atelectasis. 4. Appears to be colitis of the distal colon. 5. [place] distended urinary bladder. 6. Fatty infiltration of the liver. 7. No malignancy was noted. 8. There was thickening to the wall of sigmoid colon and rectum. Multiple colonic diverticulae were noted. IMPRESSION AND PLAN: 1. Anemia of chronic disease. 2. Positive Hemoccult . 3. Possible sepsis. This is being worked up by primary team. 4. Failure to thrive. 5. Malnutrition. 6. Hypoalbuminemia. 7. Chronic obstructive pulmonary disease. 8. Depression. 9. History of alcoholism, quit about 2-3 months ago. 10. Tobacco abuse. 11. Likely alcoholic liver disease, but she has quit alcohol for 2 to 3 months. 12. Folate deficiency anemia. 13. Underweight, BMI of 17 kg/m2. 14. Active smoker, smoking 2-1/2 to 3 packs cigarettes a day. 15. Emphysema. 16. Diverticulosis of colon. RECOMMENDATIONS: 1. She will need to be transfused with the primary care team. She is getting supplemented for folate deficiency. She has a positive Hemoccult. We will schedule her for EGD and colonoscopy on Saturday under anesthesia. She is undergoing sepsis workup as well. The patient is counseled to quit smoking completely. The patient was also counseled to stay abstinent from alcohol. 2. She has nebulizer treatment for COPD and emphysema. 3. She is on Megace 4 mg p.o. b.i.d. for failure to thrive. She is on TPN at the moment. 4. She is on PPIs b.i.d. for GI prophylaxis. 5. We will continue on thiamine supplementation. 6. She is on empiric antibiotics for possible sepsis. The workup is currently undergoing. 7. Above plan discussed with the patient and all questions answered. Please call us with any further questions. cc: MD Serafin Arnold MD MTDD
[2019-08-23 08:14] LABS: BASO# 0.05 X1000 (0.0-0.2); BASO% 0.6 % (0.0-0.8); EOS# 0.19 X1000 (0.0-0.7); EOS% 2.3 % (0.0-10.0); HEMATOCRIT 33.8 % (37.0-47.0); IMM GRAN# 0.29 X1000 (0.0-0.04); IMM GRAN% 3.5 % (0.0-0.5); LYMPH# 1.72 X1000 (1.2-3.4); LYMPH% 20.5 % (20.5-51.1); MCH 28.5 PG (27-31); MCHC 32.5 g/dL (33-37); MCV 87.6 FL (81-99); MONO% 7.2 % (1.7-9.3); MPV 9.3 FL (7.4-10.4); NEUT# 5.52 X1000 (1.4-6.5); NEUT% 65.9 % (42.2-75.2); PLT 375 X1000 (130-400); RBC 3.86 XMIL (4.2-5.4); RDW 19.2 % (11.5-14.5); WBC 8.37 X1000 (4.8-10.8)
[2019-08-23] MEDS: LEXAPRO PO SCH (08:28)
[2019-08-23] MEDS: PROTONIX IV SCH ×2 (08:28→21:33)
[2019-08-23] MEDS: MEGACE LIQUID PO SCH ×2 (08:28→21:33)
[2019-08-23] MEDS: THIAMINE 100 MG in NS 50 ML IV SCH (08:39)
[2019-08-23] MEDS: FOLIC ACID 1 MG in NS 50 ML IV SCH (08:39)
--- NOTE | 2019-08-23 09:00 | PROGRESS NOTE ---
DATE: 08/23/2019 SUBJECTIVE: The patient reports feeling fine, but looks to me a little bit more sleepy. According to nursing staff, his mentation continues to be up and down. No other complaints noted. OBJECTIVE: Vital Signs: Temperature 99.3 degrees, heart rate 106, respiratory rate 20, blood pressure 160/85, O2 saturation 97% on room air. General: This is a chronically ill-looking and very malnourished, 63-year-old, female, lying in bed in no acute distress. Cardiovascular: S1, S2 heard. Tachycardic, but no murmurs, gallops, or rubs. Respiratory: Clear bilaterally to auscultation. No work of breathing or using accessory muscles. Abdomen: Soft, a little bit tender to palpation around the periumbilical area, but no signs of peritoneal irritation. Bowel sounds present. No organomegaly. Extremities: No clubbing, cyanosis, or edema. Peripheral pulses present. Neurological: The patient is awake. Some had tremor noted. Moves all 4 extremities. LABORATORY DATA: Pending at the time of my dictation. ASSESSMENT AND PLAN: 1. Anemia of chronic disease. Hemoglobin has dropped to 6.4 yesterday. He has been provided 2 units of blood, but the results of labs are still unavailable. Gastroenterology has evaluated this patient, and she will have upper endoscopy and colonoscopy Saturday morning. Will see what it shows. 2. Failure to thrive. The patient is on Clinimix and lipids. Will continue with the same management. 3. Possible sepsis, most likely secondary to colitis. The patient is on vancomycin and Zosyn. The patient is still tachycardic. Will continue to monitor this patient closely. 4. Chronic obstructive pulmonary disease. The patient is not in any exacerbation. Will continue to monitor the patient closely. 5. Depression. The patient currently is on escitalopram and Remeron. Will continue to monitor. 6. Disposition. Will continue to monitor this patient closely. Will see what upper endoscopy and colonoscopy shows tomorrow. cc: Zackery Mandujano MD
[2019-08-23 09:02] LABS: AGAP 9; ALBUMIN 2.6 g/dL (3.5-5.0); BUN 8 mg/dL (8-22); CALCIUM 8.7 mg/dL (8.8-10.2); CHLORIDE 103 mmol/L (98-107); COSMO 274; CREATININE 0.5 mg/dL (0.5-0.9); ESTIMATED GFR > 60; GLUCOSE 99 mg/dL (70-104); MAGNESIUM 1.6 mg/dL (1.5-2.7); PHOSPHORUS 3.9 mg/dL (2.7-4.5); POTASSIUM 2.9 mmol/L (3.5-5.1); SODIUM 138 mmol/L (136-145); TCO2 26 mmol/L (25-35)
[2019-08-23] MEDS ORDERED: GOLYTELY PO ONE (14:00)
[2019-08-23] MEDS: VANCOMYCIN 1 GM/NS 1 GM/250 ML IVPB IV SCH (14:07)
[2019-08-23] MEDS: LIPOSYN 20% 250 ML IV SCH (15:17)
[2019-08-23] MEDS: MORPHINE IV PRN ×3 (15:25→21:34)
[2019-08-23] MEDS ORDERED: POTASSIUM CHLORIDE 60 MEQ in NS 500 ML IV ONE (16:27)
--- NOTE | 2019-08-23 20:32 | GASTROENTEROLOGY PROGRESS NOTE ---
DATE: 08/23/2019 SUBJECTIVE: She is resting in bed. Her is at bedside. The patient is feeling the same. She had liquid green stools. She continues to have poor oral intake. We discussed the option of doing EGD and colonoscopy with the patient tomorrow. The patient and family at the moment are thinking about it and the patient is considering not to pursue any endoscopic intervention at this time. We discussed the results of CT scan done which was done yesterday which showed evidence of possible colitis in the distal colon and fatty infiltration of the liver, hepatic renal cyst and evidence of emphysema on CT of the chest and bilateral atelectasis. PHYSICAL EXAMINATION: Vital signs: Temperature of 97.9 degrees, pulse of 115, respiratory rate of 16, blood pressure 108/68, saturating 90% on room air. Body weight of 99 pounds 8 ounces. BMI 17.1 kg/m2. Thinly built, lying in bed, in no acute distress. HEENT: Positive pallor. No icterus. Nasal cannula in place. Neck: Supple. Abdomen: Soft, nontender, nondistended. No guarding. No rebound. Extremities: No cyanosis or clubbing. Neurologic: Alert, awake, oriented x3. LABS: Hemoglobin 11 and hematocrit 33.8, white count of 8.37, platelet count of 375,000, sodium 138, potassium 2.9, chloride 103, bicarb 23, anion gap 9, BUN of 8, creatinine 0.5, glucose of 99. Calcium 8.7, magnesium 1.6, phosphorus 3.9. Percent saturation iron is 38% and albumin of 2.6. Blood cultures negative for 48 hours. Stool occult blood was positive. Flu screen was negative for A and B. IMPRESSION AND PLAN: 1. Anemia of chronic disease. 2. Positive Hemoccult. 3. Possible sepsis. This is being worked up primary team. 4. Failure to thrive. 5. Decreased oral intake, malnutrition and hypoalbuminemia. 6. Chronic obstructive pulmonary disease, heavy smoker, 2 packs per day for many decades. 7. Depression. 8. History of alcoholism quit about 2 to 3 months ago. 9. Ongoing tobacco abuse. Recently quit. 10. Likely alcoholic liver disease, but the patient has quit alcohol for 2 to 3 months. 11. Folate deficiency anemia. 12. Underweight, BMI of 17 kg. 13. Moderate emphysema seen on imaging. 14. Possible colitis in left colon seen on the imaging and evidence of diverticulosis of colon seen on imaging. RECOMMENDATIONS: Her blood counts have improved after transfusion. The patient and family are going to talk about the possible risks and benefits of doing EGD and colonoscopy for further workup and will let us know. So far, patient does not want to pursue the workup. I counseled patient to quit smoking completely. Also encouraged to stay abstinent from alcohol. She will continue on nebulizer treatment for COPD and emphysema per the primary team. She is on Megace 400 mg p.o. b.i.d. for failure to thrive and poor appetite. She is on TPN at the moment. Also she will be on PPIs b.i.d. for GI prophylaxis and possible GI bleed. She will also continue on thiamine, and folic acid supplementation. She is on empiric antibiotics for possible sepsis and left-sided colitis. The above plan discussed the patient and family at bedside. All questions answered. Please call with any further questions. cc: MD Serafin Arnold MD Eric Crampsey, CRNP MTDD
[2019-08-23] MEDS: REMERON PO SCH (21:33)
[2019-08-23] MEDS: SODIUM CHLORIDE 0.9% INJ SCH (21:34)
[2019-08-24] MEDS: MORPHINE IV PRN ×6 (00:39→21:48)
[2019-08-24] MEDS: DUONEB (A & A) INH SCH ×6 (03:24→23:01)
[2019-08-24] MEDS: CLINIMIX E 4.25%-5% SOLUTION 1,000 ML IV SCH ×2 (05:21→18:45)
[2019-08-24] MEDS: ZOSYN 3.375 GM in NS 50 ML IV SCH ×6 (05:21→23:00)
[2019-08-24] MEDS: VANCOMYCIN 1 GM/NS 1 GM/250 ML IVPB IV SCH (06:28)
[2019-08-24] MEDS ORDERED: DIPRIVAN 1% ONE (07:39)
[2019-08-24] MEDS ORDERED: XYLOCAINE-MPF 2% ONE (07:41)
[2019-08-24 08:05] LABS: BASO# 0.03 X1000 (0.0-0.2); BASO% 0.5 % (0.0-0.8); EOS# 0.35 X1000 (0.0-0.7); EOS% 5.4 % (0.0-10.0); HEMATOCRIT 34.7 % (37.0-47.0); HEMOGLOBIN 10.9 g/dL (12.0-16.0); IMM GRAN# 0.16 X1000 (0.0-0.04); IMM GRAN% 2.5 % (0.0-0.5); LYMPH# 1.45 X1000 (1.2-3.4); LYMPH% 22.4 % (20.5-51.1); MCH 28.6 PG (27-31); MCHC 31.4 g/dL (33-37); MCV 91.1 FL (81-99); MONO# 0.56 X1000 (0.11-0.59); MONO% 8.6 % (1.7-9.3); MPV 9.3 FL (7.4-10.4); NEUT# 3.93 X1000 (1.4-6.5); NEUT% 60.6 % (42.2-75.2); PLT 320 X1000 (130-400); RBC 3.81 XMIL (4.2-5.4); RDW 20.4 % (11.5-14.5); WBC 6.48 X1000 (4.8-10.8)
--- NOTE | 2019-08-24 08:10 | PROGRESS NOTE ---
DATE: 08/24/2019 SUBJECTIVE: The patient reports feeling okay. No major complaints at this time. OBJECTIVE: Vital Signs: Temperature 98.3 degrees, heart rate 125, respiratory rate 18, blood pressure 132/72, O2 saturation 98% on room air. General: This is a chronically ill-appearing and malnourished, 63-year-old, female, lying in bed in no acute distress. Cardiovascular: S1, S2 heard. No murmurs, gallops, or rubs. Regular rate and rhythm. Tachycardic. Respiratory: Clear bilaterally to auscultation. No work of breathing or using accessory muscles. Abdomen: Soft, mildly tender to palpation around the periumbilical area, but no signs of peritoneal irritation. Bowel sounds present. No organomegaly. Extremities: No clubbing, cyanosis, or edema. Peripheral pulses present in both legs. Neurological: The patient is awake. Some tremor noted. LABORATORY DATA: Pending at the time of my dictation from today, but from yesterday, hemoglobin has been 11.0, and potassium 2.9. ASSESSMENT AND PLAN: 1. Anemia of chronic disease. Hemoglobin has dropped the day before yesterday to 6.4, and yesterday hemoglobin has been checked and it was 11.0. The patient also has failure to thrive, so Gastroenterology has evaluated this patient, and initially the plan was to have upper endoscopy and colonoscopy today, but apparently they initially refused those procedures to be done. I have talked with the patient in depth about the advantages of having those procedures done today considering that she has not had any endoscopy or colonoscopy ever. She agreed to proceed, so will notify Gastroenterology that she has changed her mind. 2. Failure to thrive. The patient continues to be on Clinimix and lipids. She is not eating well. Will continue to monitor. 3. Sepsis secondary to colitis. The patient is on vancomycin and Zosyn. 4. Chronic obstructive pulmonary disease. The patient is not in any exacerbation. Will continue to monitor this patient closely. 5. Depression. The patient continues to be on Remeron and Lexapro. Will continue to monitor. 6. Disposition. At this point, we are going to talk with Gastroenterology to make sure that this patient decided to proceed with endoscopy and colonoscopy. cc: Zackery Mandujano MD
[2019-08-24] MEDS: SODIUM CHLORIDE 0.9% INJ SCH (08:30)
[2019-08-24] MEDS: PROTONIX IV SCH ×2 (08:30→20:14)
[2019-08-24] MEDS: FOLIC ACID 1 MG in NS 50 ML IV SCH (08:30)
[2019-08-24] MEDS: MEGACE LIQUID PO SCH ×2 (08:30→20:14)
[2019-08-24] MEDS: LEXAPRO PO SCH (08:30)
[2019-08-24 08:52] LABS: AGAP 11; ALBUMIN 2.7 g/dL (3.5-5.0); BUN 8 mg/dL (8-22); CALCIUM 8.9 mg/dL (8.8-10.2); CHLORIDE 105 mmol/L (98-107); COSMO 276; CREATININE 0.5 mg/dL (0.5-0.9); ESTIMATED GFR > 60; GLUCOSE 97 mg/dL (70-104); MAGNESIUM 1.7 mg/dL (1.5-2.7); PHOSPHORUS 3.8 mg/dL (2.7-4.5); POTASSIUM 4.4 mmol/L (3.5-5.1); SODIUM 139 mmol/L (136-145); TCO2 23 mmol/L (25-35)
[2019-08-24] MEDS: THIAMINE 100 MG in NS 50 ML IV SCH (09:20)
[2019-08-24] MEDS ORDERED: GOLYTELY PO ONE (14:00)
--- NOTE | 2019-08-24 14:57 | GASTROENTEROLOGY PROGRESS NOTE ---
DATE: 08/24/2019 SUBJECTIVE: Ms. Mcneil is a 63-year-old, female. She is resting in bed. The patient mentioned that she does not feel like eating her breakfast or eating any other food. She said she just does not have an appetite for anything. The patient has denied having any bowel movements today. She is currently on a clear liquid diet with Ensure, but not able to eat anything. PHYSICAL EXAMINATION: Vital Signs: Temperature 98.4 degrees, pulse is 127, respirations 18, blood pressure 139/90, oxygen saturation is 99% on room air. The patient's weight is 99 pounds. BMI is 17.1 kg/m2. General: She is alert and oriented x3, and in no acute distress. HEENT: Pale conjunctivae. No icterus. PERRL. Neck: Supple. Lungs: Clear to auscultation. Cardiovascular: The patient is tachycardic. Abdomen: Soft, nontender, nondistended. Active bowel sounds heard in all 4 quadrants. Extremities: No clubbing, no cyanosis, no edema. Neurologic: She is alert and oriented x3. LABORATORY DATA: WBCs are 6.48, RBC 3.18, hemoglobin 10.9, hematocrit is 34.7, platelet count is 320,000. PT 139. Potassium 4.4, chloride 105, carbon dioxide 23, anion gap 11, BUN 8, creatinine is 0.5, glucose is 97, calcium is 8.9. Phosphorus is 3.8, and magnesium is 1.7. Albumin is 2.7. IMPRESSION AND PLAN: Anemia COPD Positive Hemoccult Colitis- left sided Severe malnutrition failure to thrive Loss of appetite Chronic tobacco abuse PLAN: Ms. Mcneil is a 63-year-old, female, who is severely malnourished. Gastroenterology is following her for her malnutrition. We plan to do an EGD and a colonoscopy tomorrow to find out the cause of her anemia. We will continue the patient with PPI's twice a day. The patient is currently receiving TPN intravenously. She is receiving Clinimix 75 mL, and lipids at 8 mL/hour. The patient is also on antibiotic, Zosyn , and vancomycin. She is also receiving folic acid and thiamine intravenously. We have discussed the risks, benefits, and alternatives of the procedure with the patient. Further plan of care will be based on the EGD and colonoscopy findings. This plan was discussed with Dr. Ramsey. Please call us for any further questions or concerns. Dictated by ARCADIO Sanchez for Fam Ramsey MD cc: Fam Ramsey MD I have seen and examined the patient myself and I agree with the above plan of care. Please call with any questions or concerns. [facility]
[2019-08-24] MEDS: LIPOSYN 20% 250 ML IV SCH (17:36)
[2019-08-24] MEDS: REMERON PO SCH (20:14)
[2019-08-25] MEDS: VANCOMYCIN 1 GM/NS 1 GM/250 ML IVPB IV SCH (00:25)
[2019-08-25] MEDS: MORPHINE IV PRN ×3 (01:36→15:30)
[2019-08-25] MEDS: DUONEB (A & A) INH SCH ×4 (03:25→15:36)
[2019-08-25] MEDS: ZOSYN 3.375 GM in NS 50 ML IV SCH ×2 (05:25→12:03)
[2019-08-25] MEDS: CLINIMIX E 4.25%-5% SOLUTION 1,000 ML IV SCH (07:56)
[2019-08-25] MEDS ORDERED: FENTANYL ONE (08:31)
[2019-08-25] MEDS ORDERED: XYLOCAINE-MPF 2% ONE (08:31)
[2019-08-25] MEDS ORDERED: DIPRIVAN 1% ONE (08:31)
[2019-08-25] MEDS: LEXAPRO PO SCH (08:33)
[2019-08-25] MEDS: SODIUM CHLORIDE 0.9% INJ SCH (08:36)
[2019-08-25] MEDS: PROTONIX IV SCH (08:36)
[2019-08-25] MEDS: MEGACE LIQUID PO SCH (08:39)
[2019-08-25 08:43] LABS: BASO# 0.04 X1000 (0.0-0.2); BASO% 0.5 % (0.0-0.8); EOS# 0.41 X1000 (0.0-0.7); EOS% 5.6 % (0.0-10.0); HEMATOCRIT 36.3 % (37.0-47.0); HEMOGLOBIN 11.3 g/dL (12.0-16.0); IMM GRAN# 0.08 X1000 (0.0-0.04); IMM GRAN% 1.1 % (0.0-0.5); LYMPH# 1.34 X1000 (1.2-3.4); LYMPH% 18.3 % (20.5-51.1); MCHC 31.1 g/dL (33-37); MCV 93.1 FL (81-99); MONO% 9.6 % (1.7-9.3); MPV 9.4 FL (7.4-10.4); NEUT# 4.74 X1000 (1.4-6.5); NEUT% 64.9 % (42.2-75.2); PLT 264 X1000 (130-400); RDW 20.2 % (11.5-14.5); WBC 7.31 X1000 (4.8-10.8)
[2019-08-25 09:44] LABS: AGAP 10; BUN 11 mg/dL (8-22); CALCIUM 9.4 mg/dL (8.8-10.2); CHLORIDE 102 mmol/L (98-107); COSMO 273; CREATININE 0.5 mg/dL (0.5-0.9); ESTIMATED GFR > 60; GLUCOSE 86 mg/dL (70-104); PHOSPHORUS 3.8 mg/dL (2.7-4.5); SODIUM 137 mmol/L (136-145); TCO2 25 mmol/L (25-35)
--- NOTE | 2019-08-25 09:44 | ENDOSCOPY OPERATIVE NOTE ---
[facility] ENDOSCOPY OPERATIVE NOTE , EGD PROCEDURE REPORT EXAM DATE: 08/25/2019 PATIENT NAME: Malia Mcneil MR#: [id number] BIRTHDATE: 1955 ATTENDING: Serafin Lacy MD STATUS: inpatient SPECIFICATION MANAGER: INDICATIONS: The patient is a 63 yr old female here for an EGD due to weight loss, severe protein ca natan malnutrition, anemia, and occult blood positive. PROCEDURE PERFORMED: EGD w/ biopsy MEDICATIONS: Per Anesthesia ESTIMATED BLOOD LOSS: None CONSENT: The patient understands the risks and benefits of the procedure and understands that these r isks include, but are not limited to: sedation, allergic reaction, infection, perforation and/or bleeding. Alternative means of evaluation and treatment include, among others: physical exam, x-rays, and/or surgical intervention. The patient elects to proceed with this endoscopic procedure. DESCRIPTION OF PROCEDURE: During pre-op preparation period all mechanical and medical equipment was c hecked for proper function. Hand hygiene and appropriate measures for infection prevention was taken. After the risks, benefits and alternatives of the procedure were thoroughly explained, Informed consent was verified, confirmed and timeout was successfully executed by the treatment team. The patient was anesthetized with topical anesthesia and the [id number] ([id number]) endoscope was introduced through the mouth and advanced to the second portion of the duoden um. Retroflexion was performed in the stomach and revealed a hiatal hernia. The gastroscope was then slowly withdrawn and removed. The patient's toleration of the procedure was excellent. ESOPHAGUS: A 3 cm hiatal hernia was noted. A Schatzki ring was found at the gastroesophageal juncti on and was widely open. STOMACH: Mild gastritis (inflammation) was found in the gastric antrum. A biopsy was performed using cold forceps. Sample sent for histology. DUODENUM: Mild duodenal inflammation was found in the duodenal bulb. A biopsy was performed using co ld forceps. Sample sent for histology. ADVERSE EVENTS: There were no complications. IMPRESSIONS: 1. 3 cm hiatal hernia 2. Schatzki ring was found at the gastroesophageal junction 3. Gastritis (inflammation) was found in the gastric antrum; biopsy was performed 4. Duodenal inflammation was found in the duodenal bulb; biopsy was performed RECOMMENDATIONS: 1. Await biopsy results 2. Avoid NSAIDs 3. Continue to colonoscopy procedure REPEAT EXAM: Serafin Lacy MD eSigned: Serafin Lacy MD 08/25/2019 9:44 AM CC: CPT CODES: 64182 Upper gastrointestinal endoscopy including esophagus, stomach, and either the du odenum and/or jejunum as appropriate; with biopsy, single or multiple ICD CODES: 783.21 Loss of weight 285.9 anemia,unspecified 972.1 Nonspecific abnormal findings in stool contents 553.3 Diaphragmatic hernia without mention of obstruction or gangrene 530.3 Stricture and stenosis of esophagus 535.50 Unspecified gastritis and gastroduodenitis (without hemorrhage) 535.60 Duodenitis (without mention of hemorrhage) The ICD and CPT codes recommended by this software are interpretations from the data that the [facility] staff has captured with the software. The verification of the translation of this report to the ICD and CPT co omid and modifiers is the sole responsibility of the health care institution and practicing physician where this report was generated. [employer] will not be held responsible for the validity of the ICD and CPT codes i ncluded on this report. [employer] assumes no liability for data contained or not contained herein. CPT is a registered tra demark of the [employer]. PATIENT NAME: Malia Mcneil MR#: [id number]
--- NOTE | 2019-08-25 09:52 | ENDOSCOPY OPERATIVE NOTE ---
[facility] ENDOSCOPY OPERATIVE NOTE , COLONOSCOPY PROCEDURE REPORT EXAM DATE: 08/25/2019 PATIENT NAME: Malia Mcneil MR #: [id number] BIRTHDATE: 1955 ENDOSCOPIST: Serafin Lacy MD STATUS: inpatient IMAGING AIDE: INDICATIONS: The patient is a 63 yr old female here for a colonoscopy due to weight loss, anemia, no n-specific, and heme-positive stool, fecal abnormality. PROCEDURE PERFORMED: Colonoscopy with biopsy MEDICATIONS: Per Anesthesia PREP TYPE: Tommie[place]ely
[2019-08-25] MEDS: THIAMINE 100 MG in NS 50 ML IV SCH (10:14)
[2019-08-25 12:39] VITALS: BP 135/83
[2019-08-25] MEDS: FOLIC ACID 1 MG in NS 50 ML IV SCH (14:00)
--- NOTE | 2019-08-26 10:36 | DISCHARGE SUMMARY ---
ADMISSION DATE: 08/20/2019 DISCHARGE DATE: 08/25/2019 DISCHARGE DIAGNOSES: 1. Protein-calorie malnutrition, stable. 2. Acute colitis on treatment. 3. Gastritis. 4. Anemia chronic disease improved. 5. Chronic obstructive pulmonary disease. 6. Depression stable. CONSULTATIONS: Dr. Serafin Lacy from GI. PROCEDURES: 1. Chest x-ray done on admission showed emphysema. 2. CT of chest abdomen and pelvis show with non pneumonia emphysema, bibasilar atelectasis, colitis in the distal colon, fatty infiltration of the liver with hepatic and renal cysts. 3. Upper endoscopy showed Schatzki ring was found in the gastroesophageal junction, gastritis in the gastric antrum and duodenal inflammation. HOSPITAL COURSE: In brief, this is a 63-year-old, female with unremarkable past medical history except malnutrition history of alcohol and tobacco abuse who presented to the emergency department complaining of general weakness that was progressively getting worse. The patient apparently has lost 10 pounds during the last 6 months. She had a poor appetite. Patient was admitted to the hospital. She was placed on Clinimix and GI was consulted who performed the procedure as above. Because she started spiking fever we did chest, abdomen, pelvis CT with results as above. Patient started was started on Levaquin and Flagyl. Patient started feeling better. For depression we decided to start this patient on Remeron and she was having better appetite and better sleeping. After those procedures I think this patient is pretty much stable. Gastroenterology has signed off. She eating better so we are going to discharge this patient in stable condition. DISCHARGE PHYSICAL EXAMINATION: Temperature 98.6 degrees, heart rate 122, respiratory rate 18, blood pressure 133/94. O2 saturation 100% on room air. General: This is a chronically ill- appearing, 63-year-old female lying in bed, in no acute distress. Cardiovascular: S1, S2 heard. No murmurs, gallops, or rubs. Regular rate and rhythm. Respiratory: Decreased breath sounds globally. No wheezing noted. Patient is not using any accessory muscles or having work of breathing. Abdomen: Soft, nontender to palpation. Bowel sounds present. No organomegaly. Extremities: No clubbing, cyanosis, or edema. Peripheral pulses present in both legs. Neurological: The patient is alert and oriented x3. Moves 4 extremities. DISCHARGE DISPOSITION: Home to self-care. FOLLOWUP: Follow up with his primary care physician, ARCADIO Tapia in a week. DISCHARGE MEDICATIONS: 1. Remeron 50 mg 1 tablet p.o. at bedtime. 2. Ensure twice daily. 3. Metronidazole 500 mg 1 tablet p.o. b.i.d. 4. Vitamin D 50,000 units 1 tablet p.o. every week. 5. Protonix 40 mg 1 tablet p.o. daily. 6. Megace 400 mg twice daily. 7. Lexapro 20 mg 1 tablet p.o. at bedtime. 8. Potassium chloride 20 mEq p.o. daily. 9. Levofloxacin 500 mg 1 tablet p.o. daily for a week. TIME DISCHARGING THIS PATIENT: 33 minutes. MTDD
== END 2019-08-25 16:06 | disposition home or self-care (01) | DRG 871 ==
LOC: ED 17:40 → SUATTDRO 17:41 → 3N 08-21 03:02
PROVIDERS: ATTEND Internal Medicine